=== PATIENT | female | born 1960 | race Caucasian/White ===

== ENCOUNTER 2017-02-17 11:36 | Observation (INO) | payer MEDICARE, BC ==
[2017-02-17] MEDS ORDERED: Aspirin 81 MG Tab.Chew PO ONE (11:49)
--- NOTE | 2017-02-17 12:12 | EDM.PDOC ---
ED HPI GENERAL MEDICAL PROBLEM - General Chief Complaint: Chest Pain Stated Complaint: CHEST PAIN/SOB Time Seen by Provider: 02/17/17 12:10 Source of Information: Reports: Patient, Family History Limitations: Reports: No Limitations - History of Present Illness INITIAL COMMENTS - FREE TEXT/NARRATIVE: pt had left sided chest pain trhat woke here at 5 thirty this am. Onset: Today Duration: Hour(s): Location: Reports: Chest Quality: Reports: Pressure, Stabbing, Other ( started out being stabbing pain and it is now crushing pain) Associated Symptoms: Reports: Chest Pain, Shortness of Breath Treatments FINISH MIXER: Reports: Acetaminophen Other Treatments FINISH MIXER: ASA 325 mg Mid-Sternal Chest Pain Score (Numeric/FACES): 8 - Related Data Allergies Allergy/AdvReac Type Severity Reaction Status Date / Time erythromycin base AdvReac Vomiting Verified 02/17/17 12:02 Home Meds: Home Meds ALPRAZolam [Xanax XR] 3 tab PO DAILY 04/01/15 [History] Calcium Carbonate [Calcium] 1 tab PO BID 04/01/15 [History] Cyclobenzaprine [Flexeril] 3 - 4 tab PO BEDTIME 04/01/15 [History] Levothyroxine [Synthroid] 1 tab PO DAILY 04/01/15 [History] Simvastatin [Zocor] 20 mg PO BEDTIME 07/13/16 [History] Cholecalciferol (Vitamin D3) [Vitamin D3] 1,000 units PO BID 02/17/17 [History] Past Medical History Cardiovascular History: Reports: High Cholesterol DIRECTOR SCRIPT History: Reports: Musculoskeletal History: Reports: Other (See Below) Other Musculoskeletal History: hip pain Other Neuro History: memory loss Psychiatric History: Reports: Anxiety Endocrine/Metabolic History: Reports: Hypothyroidism Hematologic History: Reports: Blood Transfusion(s) - Past Surgical History Musculoskeletal Surgical History: Reports: Hip Replacement, Joint Replacement Social & Family History - Tobacco Use Years of Tobacco use: 35 Packs/Tins Daily: 1 - Alcohol Use Days Per Week of Alcohol Use: 1 Number of Drinks Per Day: 3 Total Drinks Per Week: 3 - Recreational Drug Use Recreational Drug Use: No ED ROS GENERAL - Review of Systems Review Of Systems: See Below Constitutional: Reports: No Symptoms HEENT: Reports: No Symptoms Respiratory: Reports: No Symptoms Cardiovascular: Reports: Chest Pain, Other (substernal chest pain. She has a history of fibromyalcia and does get chest pain at times. ) GI/Abdominal: Reports: No Symptoms : Reports: No Symptoms Musculoskeletal: Reports: Other ( no tenderness to palpate. ) Skin: Reports: No Symptoms ED EXAM, GENERAL - Physical Exam Exam: See Below Free Text/Narrative:: pt arrived with pain in the left chest. This woke her up at 5 thirty this am and she has been very uncomfortable since that time. Exam Limited By: No Limitations General Appearance: Alert, Anxious, Moderate Distress Ears: Normal TMs Nose: Normal Inspection Throat/Mouth: Normal Inspection Head: Atraumatic Neck: Normal Inspection Respiratory/Chest: No Respiratory Distress Cardiovascular: Regular Rate, Rhythm GI/Abdominal: Soft, Non-Tender (Female) Exam: Deferred Rectal (Female) Exam: Deferred Back Exam: Normal Inspection Extremities: Normal Inspection Neurological: Alert, Oriented, Normal Cognition Psychiatric: Normal Affect, Anxious Course - Vital Signs Last Recorded V/S: Last Vital Signs Temp 36.4 C 02/17/17 12:16 Pulse 55 L 02/17/17 14:47 Resp 20 02/17/17 13:30 BP 127/76 02/17/17 14:47 Pulse Ox 92 L 02/17/17 14:47 - Orders/Labs/Meds Orders: Active Orders 24 hr Category Date Time Status Patient Status Manage Transfer [TRANSFER] Routine ADT 02/17/17 15:06 Active EKG Documentation Completion [RC] ASDIRECTED Care 02/17/17 11:47 Active EKG Documentation Completion [RC] ASDIRECTED Care 02/17/17 14:20 Active Resuscitation Status Routine Resus Stat 02/17/17 15:08 Ordered EKG 12 Lead [EK] Routine Ther 02/17/17 11:47 Ordered EKG 12 Lead [EK] Routine Ther 02/17/17 14:19 Ordered Labs: Laboratory Tests 02/17/17 02/17/17 02/17/17 Range/Units 11:52 11:52 11:52 WBC 5.7 (4.5-11.0) K/uL RBC 4.63 (3.30-5.50) M/uL Hgb 14.5 (12.0-15.0) g/dL Hct 42.4 (36.0-48.0) % MCV 92 (80-98) fL MCH 31 (27-31) pg MCHC 34 (32-36) % Plt Count 263 (150-400) K/uL Neut % (Auto) 55 (36-66) % Lymph % (Auto) 35 (24-44) % Russell % (Auto) 9 H (2-6) % Eos % (Auto) 1 L (2-4) % Baso % (Auto) 0 (0-1) % Sodium 141 (140-148) mmol/L Potassium 3.6 (3.6-5.2) mmol/L Chloride 105 (100-108) mmol/L Carbon Dioxide 25 (21-32) mmol/L Anion Gap 11.2 (5.0-14.0) mmol/L BUN 10 (7-18) mg/dL Creatinine 0.9 (0.6-1.0) mg/dL Est Cr Clr Drug Dosing 70.41 mL/min Estimated GFR (MDRD) > 60 (>60) Glucose 123 H (74-106) mg/dL Calcium 8.8 (8.5-10.1) mg/dL Total Bilirubin 0.3 (0.2-1.0) mg/dL AST 36 (15-37) U/L ALT 75 (12-78) U/L Alkaline Phosphatase 57 (46-116) U/L Creatine Kinase 94 (26-192) U/L Troponin I < 0.017 (0.000-0.056) ng/mL Total Protein 8.0 (6.4-8.2) g/dL Albumin 4.0 (3.4-5.0) g/dL Globulin 4.0 H (2.3-3.5) g/dL Albumin/Globulin Ratio 1.0 L (1.2-2.2) TSH, Ultra Sensitive (0.358-3.740) uIU/mL Urine Color Urine Appearance Urine pH (4.5-8.0) Ur Specific [place] (1.008-1.030) Urine Protein (NEGATIVE) mg/dL Urine Glucose (UA) (NEGATIVE) mg/dL Urine Ketones (NEGATIVE) mg/dL Urine Occult Blood (NEGATIVE) Urine Nitrite (NEGATIVE) Urine Bilirubin (NEGATIVE) Urine Urobilinogen (NORMAL) mg/dL Ur Leukocyte Esterase (NEGATIVE) Urine RBC (0-5) Urine WBC (0-5) Ur Epithelial Cells Amorphous Sediment Urine Bacteria Urine Mucus 02/17/17 02/17/17 02/17/17 Range/Units 11:52 11:52 12:45 WBC (4.5-11.0) K/uL RBC (3.30-5.50) M/uL Hgb (12.0-15.0) g/dL Hct (36.0-48.0) % MCV (80-98) fL MCH (27-31) pg MCHC (32-36) % Plt Count (150-400) K/uL Neut % (Auto) (36-66) % Lymph % (Auto) (24-44) % Russell % (Auto) (2-6) % Eos % (Auto) (2-4) % Baso % (Auto) (0-1) % Sodium (140-148) mmol/L Potassium (3.6-5.2) mmol/L Chloride (100-108) mmol/L Carbon Dioxide (21-32) mmol/L Anion Gap (5.0-14.0) mmol/L BUN (7-18) mg/dL Creatinine (0.6-1.0) mg/dL Est Cr Clr Drug Dosing mL/min Estimated GFR (MDRD) (>60) Glucose (74-106) mg/dL Calcium (8.5-10.1) mg/dL Total Bilirubin (0.2-1.0) mg/dL AST (15-37) U/L ALT (12-78) U/L Alkaline Phosphatase (46-116) U/L Creatine Kinase (26-192) U/L Troponin I Cancelled < 0.017 (0.000-0.056) ng/mL Total Protein (6.4-8.2) g/dL Albumin (3.4-5.0) g/dL Globulin (2.3-3.5) g/dL Albumin/Globulin Ratio (1.2-2.2) TSH, Ultra Sensitive 0.898 (0.358-3.740) uIU/mL Urine Color Urine Appearance Urine pH (4.5-8.0) Ur Specific [place] (1.008-1.030) Urine Protein (NEGATIVE) mg/dL Urine Glucose (UA) (NEGATIVE) mg/dL Urine Ketones (NEGATIVE) mg/dL Urine Occult Blood (NEGATIVE) Urine Nitrite (NEGATIVE) Urine Bilirubin (NEGATIVE) Urine Urobilinogen (NORMAL) mg/dL Ur Leukocyte Esterase (NEGATIVE) Urine RBC (0-5) Urine WBC (0-5) Ur Epithelial Cells Amorphous Sediment Urine Bacteria Urine Mucus 02/17/17 Range/Units 13:22 WBC (4.5-11.0) K/uL RBC (3.30-5.50) M/uL Hgb (12.0-15.0) g/dL Hct (36.0-48.0) % MCV (80-98) fL MCH (27-31) pg MCHC (32-36) % Plt Count (150-400) K/uL Neut % (Auto) (36-66) % Lymph % (Auto) (24-44) % Russell % (Auto) (2-6) % Eos % (Auto) (2-4) % Baso % (Auto) (0-1) % Sodium (140-148) mmol/L Potassium (3.6-5.2) mmol/L Chloride (100-108) mmol/L Carbon Dioxide (21-32) mmol/L Anion Gap (5.0-14.0) mmol/L BUN (7-18) mg/dL Creatinine (0.6-1.0) mg/dL Est Cr Clr Drug Dosing mL/min Estimated GFR (MDRD) (>60) Glucose (74-106) mg/dL Calcium (8.5-10.1) mg/dL Total Bilirubin (0.2-1.0) mg/dL AST (15-37) U/L ALT (12-78) U/L Alkaline Phosphatase (46-116) U/L Creatine Kinase (26-192) U/L Troponin I (0.000-0.056) ng/mL Total Protein (6.4-8.2) g/dL Albumin (3.4-5.0) g/dL Globulin (2.3-3.5) g/dL Albumin/Globulin Ratio (1.2-2.2) TSH, Ultra Sensitive (0.358-3.740) uIU/mL Urine Color Yellow Urine Appearance Slightly cloudy Urine pH 8.0 (4.5-8.0) Ur Specific [place] 1.010 (1.008-1.030) Urine Protein Negative (NEGATIVE) mg/dL Urine Glucose (UA) Normal (NEGATIVE) mg/dL Urine Ketones Negative (NEGATIVE) mg/dL Urine Occult Blood Negative (NEGATIVE) Urine Nitrite Negative (NEGATIVE) Urine Bilirubin Negative (NEGATIVE) Urine Urobilinogen Normal (NORMAL) mg/dL Ur Leukocyte Esterase Negative (NEGATIVE) Urine RBC 0-5 (0-5) Urine WBC 0-5 (0-5) Ur Epithelial Cells Rare Amorphous Sediment Not seen Urine Bacteria Few Urine Mucus Not seen Meds: Medications Discontinued Medications Generic Name Dose Route Start Last Admin Trade Name Freq PRN Reason Stop Dose Admin Acetaminophen 650 mg 02/17/17 12:31 02/17/17 12:38 Tylenol PO 02/17/17 12:32 650 mg NOW ONE Administration Aspirin 324 mg 02/17/17 11:49 02/17/17 13:09 Aspirin PO 02/17/17 11:50 Not Given ONETIME ONE Hydromorphone HCl 0.5 mg 02/17/17 14:22 02/17/17 14:40 Dilaudid IVPUSH 02/17/17 14:23 0.5 mg ONETIME ONE Administration Ketorolac Tromethamine 30 mg 02/17/17 12:54 02/17/17 13:06 Toradol IVPUSH 02/17/17 12:55 30 mg ONETIME ONE Administration Lorazepam 0.5 mg 02/17/17 13:40 02/17/17 13:45 Ativan IVPUSH 02/17/17 13:41 0.5 mg ONETIME ONE Administration Nitroglycerin 0.4 mg 02/17/17 11:58 02/17/17 12:48 Nitrostat SL 0.4 mg Q5M PRN Administration Chest Pain - Re-Assessments/Exams Free Text/Narrative Re-Assessment/Exam: 02/17/17 14:28 ekg gave some minor s-t changes ant lateral, cardiac enzymes are normal. Pt has had persistent chest pain. The nitro may have lowered her pain to a 6 from a 8. The torodol brought it down further. She still has persistent pain. sHe will hav e a repeat trop. Her ekg still shows some cellophane wrapping examiner s-t changes. Departure - Departure Time of Disposition: 14:34 Disposition: Admitted As Inpatient 66 Condition: Fair Clinical Impression: Atypical chest pain, Chest pain at rest, Fibromyalgia Referrals: Christiano Walker PA-C [Primary Care Provider] - Forms: ED Department Discharge Care Plan Goals: admit to Dr england. - My Orders Last 24 Hours: My Active Orders 02/17/17 11:47 EKG Documentation Completion [RC] ASDIRECTED EKG 12 Lead [EK] Routine 02/17/17 14:19 EKG 12 Lead [EK] Routine 02/17/17 14:20 EKG Documentation Completion [RC] ASDIRECTED - Assessment/Plan Last 24 Hours: My Active Orders 02/17/17 11:47 EKG Documentation Completion [RC] ASDIRECTED EKG 12 Lead [EK] Routine 02/17/17 14:19 EKG 12 Lead [EK] Routine 02/17/17 14:20 EKG Documentation Completion [RC] ASDIRECTED
[2017-02-17] MEDS: Nitroglycerin 0.4 MG Tab.SL SL PRN ×3 (12:25→12:48)
[2017-02-17] MEDS ORDERED: Acetaminophen 325 MG Tab PO ONE (12:31)
--- NOTE | 2017-02-17 12:45 | CR ---
Chest 1V Frontal INDICATION: chest pain FINDINGS: Normal heart size. Benign calcified granuloma left midlung. Mild aortic calcification. Ches t otherwise negative.
[2017-02-17] MEDS ORDERED: Ketorolac 30 MG/ML SDV IVPUSH ONE (12:54)
[2017-02-17] MEDS ORDERED: LORazepam 2 MG/ML MDV IVPUSH ONE (13:40)
[2017-02-17] MEDS ORDERED: HYDROmorphone 0.5 MG/0.5 ML Syringe IVPUSH ONE (14:22)
[2017-02-17] MEDS ORDERED: Magnesium Hydroxide 400 MG/5 ML Susp 30 ML Cup PO PRN (16:05)
[2017-02-17] MEDS ORDERED: Sodium Chloride 0.9% 10 ML Syringe FLUSH PRN (16:05)
[2017-02-17] MEDS ORDERED: Albuterol 0.083% 2.5 MG/3 ML Neb Soln NEB PRN (16:05)
[2017-02-17] MEDS ORDERED: oxyCODONE 5 MG Tab PO PRN (16:05)
[2017-02-17] MEDS ORDERED: Zolpidem 5 MG Tab PO PRN (16:05)
[2017-02-17] MEDS ORDERED: Polyethylene Glycol 3350 Powder 17 GM Packet PO PRN (16:05)
[2017-02-17] MEDS ORDERED: HYDROmorphone 0.5 MG/0.5 ML Syringe IVPUSH PRN (16:05)
[2017-02-17] MEDS ORDERED: Ondansetron 4 MG/2 ML SDV IV PRN (16:05)
[2017-02-17] MEDS ORDERED: Docusate Sodium 100 MG Cap PO PRN (16:05)
[2017-02-17] MEDS ORDERED: ALPRAZolam 0.5 MG Tab PO PRN (16:55)
[2017-02-17] MEDS: Enoxaparin 40 MG/0.4 ML Syringe SUBCUT SCH (17:04)
[2017-02-17] MEDS: Pantoprazole 40 MG Vial IV SCH ×2 (17:06→17:08)
--- NOTE | 2017-02-17 17:28 | PCM.HP ---
H&P History of Present Illness - General Date of Service: 02/17/17 Admit Problem/Dx: Admission Diagnosis/Problem Admission Diagnosis/Problem Chest pain Source of Information: Patient, Family, Provider, RN Notes Reviewed History Limitations: Reports: No Limitations - History of Present Illness Initial Comments - Free Text/Narative: Ms. Jc is a 56-year-old woman who is admitted to observation status through the emergency room for further evaluation of chest pain. She awoke early this morning with a sharp pain in her central left chest. Pain was described as very sharp and intense, radiating to the left shoulder and arm. Associated with nausea and shortness of breath, but no diaphoresis. She noted no precipitating or relieving factors. She came into the emergency department for further evaluation, initial EKG and cardiac enzymes were negative for any evidence of ischemia or infarct. Pain improved only modestly with nitroglycerin, has now resolved after she received IV Dilaudid. Follow-up troponin level is again found to be within normal range. Risk factors for coronary artery disease include a history of hypertension as well as a [id number] smoking history, she quit smoking approximately 5 years ago. She denies a personal history of diabetes or hypertension, there is no significant family history of coronary artery disease. Mid-Sternal Chest Pain Score (Numeric/FACES): 8 - Related Data Allergies/Adverse Reactions: Allergies Allergy/AdvReac Type Severity Reaction Status Date / Time erythromycin base AdvReac Vomiting Verified 02/17/17 12:02 Home Medications: Home Meds Calcium Carbonate [Calcium] 1 tab PO BID 04/01/15 [History] Cyclobenzaprine [Flexeril] 40 tab PO BEDTIME 04/01/15 [History] Levothyroxine [Synthroid] 1 tab PO DAILY 04/01/15 [History] Simvastatin [Zocor] 20 mg PO BEDTIME 07/13/16 [History] ALPRAZolam [Alprazolam] 1 mg PO BID PRN 02/17/17 [History] ALPRAZolam [Alprazolam] 4 mg PO BEDTIME 02/17/17 [History] Cholecalciferol (Vitamin D3) [Vitamin D3] 1,000 units PO BID 02/17/17 [History] Cyclobenzaprine [Flexeril] 10 mg PO BID 02/17/17 [History] Past Medical History HEENT History: Reports: Impaired Vision Cardiovascular History: Reports: High Cholesterol 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 SPECIALIST History: 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: Musculoskeletal History: Reports: Fibromyalgia, Other (See Below) Other Musculoskeletal History: hip pain Other Neuro History: memory loss Psychiatric History: Reports: Anxiety Endocrine/Metabolic History: Reports: Hypothyroidism Hematologic History: Reports: Blood Transfusion(s) - Past Surgical History HEENT Surgical History: Reports: Adenoidectomy, Tonsillectomy GI Surgical History: Reports: Colon, Colonoscopy, Other (See Below) Other GI Surgeries/Procedures: colon surg "tummy tuck" Female Surgical History: Reports: Hysterectomy Musculoskeletal Surgical History: Reports: Hip Replacement, Joint Replacement Social & Family History - Tobacco Use Smoking Status *Q: Never Smoker Years of Tobacco use: 35 Packs/Tins Daily: 1 Second Hand Smoke Exposure: No - Caffeine Use Caffeine Use: Reports: None - Alcohol Use Days Per Week of Alcohol Use: 1 Number of Drinks Per Day: 3 Total Drinks Per Week: 3 - Recreational Drug Use Recreational Drug Use: No H&P Review of Systems - Review of Systems: Review Of Systems: See Below General: Reports: No Symptoms HEENT: Reports: No Symptoms Pulmonary: Reports: Shortness of Breath. Denies: Wheezing, Pleuritic Chest Pain , Cough, Sputum Cardiovascular: Reports: Chest Pain, Dyspnea on Exertion. Denies: Palpitations , Orthopnea, PND, Edema, Lightheadedness, Syncope Gastrointestinal: Reports: No Symptoms Genitourinary: Reports: No Symptoms Musculoskeletal: Reports: No Symptoms Skin: Reports: No Symptoms Psychiatric: Reports: No Symptoms Neurological: Reports: No Symptoms Hematologic/Lymphatic: Reports: No Symptoms Immunologic: Reports: No Symptoms Exam - Exam Exam: See Below - Vital Signs Vital Signs: Last Vital Signs Temp 98.3 F 02/17/17 16:05 Pulse 59 L 02/17/17 16:05 Resp 12 02/17/17 16:05 BP 149/87 H 02/17/17 16:05 Pulse Ox 94 L 02/17/17 16:05 Weight: 176 lb - Exam Quality Assessment: DVT Prophylaxis General: Alert, Oriented, Cooperative HEENT: Conjunctiva Clear, Hearing Intact, Mucosa Moist & [place], Normal Nasal Septum, Posterior Pharynx Clear, Pupils Equal Neck: Supple, Trachea Midline, +2 Carotid Pulse wo Bruit Lungs: Clear to Auscultation, Normal Respiratory Effort Cardiovascular: Regular Rate, Regular Rhythm, Normal S1, Normal S2. No: Systolic Murmur, Diastolic Murmur GI/Abdominal Exam: Normal Bowel Sounds, Soft, Non-Tender, No Organomegaly, No Distention Rectal (Female) Exam: Normal Rectal Tone Back Exam: Normal Inspection, Full Range of Motion Extremities: Normal Inspection, Non-Tender, No Pedal Edema Skin: Warm, Dry, Intact Neurological: Cranial Nerves Intact, Strength Equal Bilateral, Normal Speech, Normal Tone, Sensation Intact. No: Focal Deficit Neuro Extensive - Mental Status: Alert, Oriented x3, Normal Mood/Affect, Normal Cognition, Memory Intact - Patient Data Result Diagrams: 02/17/17 11:52 02/17/17 11:52 *Q Meaningful Use (ADM) - VTE *Q VTE Criteria *Q: - VTE Risk Assess *Q Each Risk Factor Represents 1 Point: Age 41 - 59 years Total Score 1 Point Risk Factors: 1 Each Risk Factor Represents 2 Points: None Total Score 2 Point Risk Factors: 0 Each Risk Factor Represents 3 Points: None Total Score 3 Point Risk Factors: 0 Each Risk Factor Represents 5 Points: None Total Score 5 Point Risk Factors: 0 Venous Thromboembolism Risk Factor Score *Q: 1 - Stroke *Q Stroke Criteria *Q: - AMI *Q AMI Criteria *Q: Problem List Initiated/Reviewed/Updated: Yes Orders Last 24hrs: Active Orders 24 hr Category Date Time Status Patient Status [ADT] Routine ADT 02/17/17 16:05 Active Cardiac Monitoring [RC] .As Directed Care 02/17/17 16:05 Active Intake and Output [RC] QSHIFT Care 02/17/17 16:05 Active Notify Provider Vital Signs [RC] ASDIRECTED Care 02/17/17 16:05 Active RT Aerosol Therapy [RC] ASDIRECTED Care 02/17/17 16:05 Active Up ad Isela [RC] ASDIRECTED Care 02/17/17 16:05 Active VTE/DVT Education [RC] Per Unit Routine Care 02/17/17 16:05 Active Vital Signs [RC] Q4H Care 02/17/17 16:05 Active Regular Diet [DIET] Diet 02/17/17 Lunch Active Myocardial Perf Spect Multi [NM] Urgent Exams 02/18/17 08:00 Ordered LIPID PANEL [CHEM] AM Lab 02/18/17 05:11 Ordered TROPONIN I [CHEM] Stat Lab 02/17/17 21:00 Ordered ALPRAZolam [Xanax] Med 02/17/17 16:55 Active 1 mg PO BID PRN ALPRAZolam [Xanax] Med 02/17/17 21:00 Active 4 mg PO BEDTIME Acetaminophen [Tylenol] Med 02/17/17 16:05 Active 650 mg PO Q4H PRN Albuterol [Proventil Neb Soln] Med 02/17/17 16:05 Active 2.5 mg NEB Q4H PRN Cyclobenzaprine [Flexeril] Med 02/17/17 21:00 Active 40 mg PO BEDTIME Docusate Sodium [Colace] Med 02/17/17 16:05 Active 100 mg PO BID PRN Enoxaparin [Lovenox] Med 02/17/17 17:00 Active 40 mg SUBCUT Q24H HYDROmorphone [Dilaudid] Med 02/17/17 16:05 Active 0.5 mg IVPUSH Q2H PRN Ketorolac [Toradol] Med 02/17/17 16:05 Active 30 mg IVPUSH Q6H PRN Magnesium Hydroxide [Milk of Magnesia] Med 02/17/17 16:05 Active 30 ml PO Q12H PRN Ondansetron [Zofran] Med 02/17/17 16:05 Active 4 mg IV Q4H PRN Pantoprazole [ProTONIX IV] Med 02/17/17 17:00 Active 40 mg IV Q12H Polyethylene Glycol 3350 [MiraLAX] Med 02/17/17 16:05 Active 17 gm PO DAILY PRN Sodium Chloride 0.9% [Saline Flush] Med 02/17/17 16:05 Active 10 ml FLUSH ASDIRECTED PRN Zolpidem [Ambien] Med 02/17/17 16:05 Active 5 mg PO BEDTIME PRN oxyCODONE Med 02/17/17 16:05 Active 10 mg PO Q4H PRN Saline Lock Insert [OM.PC] Routine Oth 02/17/17 16:05 Ordered Resuscitation Status Routine Resus Stat 02/17/17 15:08 Ordered Medication Orders Acetaminophen (Tylenol) 650 mg PO Q4H PRN PRN Reason: Pain (Mild 1-3)/fever Albuterol (Proventil Neb Soln) 2.5 mg NEB Q4H PRN PRN Reason: Shortness Of Breath/wheezing Alprazolam (Xanax) 4 mg PO BEDTIME [facility] Alprazolam (Xanax) 1 mg PO BID PRN PRN Reason: ANXIETY/PAIN Cyclobenzaprine HCl (Flexeril) 40 mg PO BEDTIME [facility] Docusate Sodium (Colace) 100 mg PO BID PRN PRN Reason: Constipation Enoxaparin Sodium (Lovenox) 40 mg SUBCUT Q24H [facility] Last Admin: 02/17/17 17:04 Dose: 40 mg Hydromorphone HCl (Dilaudid) 0.5 mg IVPUSH Q2H PRN PRN Reason: Pain Ketorolac Tromethamine (Toradol) 30 mg IVPUSH Q6H PRN PRN Reason: Pain Stop: 02/22/17 15:52 Levothyroxine Sodium (Synthroid) 100 mcg PO DAILY@0730 [facility] Magnesium Hydroxide (Milk Of Magnesia) 30 ml PO Q12H PRN PRN Reason: Constipation Ondansetron HCl (Zofran) 4 mg IV Q4H PRN PRN Reason: Nausea/Vomiting Oxycodone HCl (Oxycodone) 10 mg PO Q4H PRN PRN Reason: Pain (moderate 4-6) Pantoprazole Sodium (Protonix Iv) 40 mg IV Q12H [facility] Last Admin: 02/17/17 17:08 Dose: 40 mg Polyethylene Glycol (Miralax) 17 gm PO DAILY PRN PRN Reason: Constipation Simvastatin (Zocor) 20 mg PO BEDTIME [facility] Sodium Chloride (Saline Flush) 10 ml FLUSH ASDIRECTED PRN PRN Reason: Keep Vein Open Zolpidem Tartrate (Ambien) 5 mg PO BEDTIME PRN PRN Reason: Insomnia Assessment/Plan Comment:: ASSESSMENT AND PLAN CHEST PAIN-abrupt onset early this morning, intense pain in the left central chest, radiating to the left shoulder and arm. Initial EKG and troponin showed no evidence of infarct or ischemia, follow-up troponin normal. Risk factors include previous smoking history of 40 years, abstinent from tobacco now for 5 years, as well as a history of hypercholesterolemia. Pain did not improve with nitroglycerin but did improve with IV narcotics. -Serial troponin levels -IV Dilaudid as needed for pain -Nitroglycerin as needed -Exercise Cardiolite study in a.m. -Protonix 40 mg IV every 12 hours MAINTENANCE ISSUES -DVT prophylaxis; Lovenox 40 mg subcutaneous daily -GI prophylaxis; Protonix as above -Awan catheter; not indicated -Nutrition; regular diet -Nicotinic dependence; not required CODE STATUS-FULL CODE ADMISSION STATUS-this patient will be admitted to observation status, expect no more than a one night hospital stay for evaluation and management of problems as outlined above. DISPOSITION-anticipate discharge to home after the hospital stay. PRIMARY CARE PROVIDER-patient receives primary care in [facility]
[2017-02-17] MEDS ORDERED: Cyclobenzaprine 10 MG Tab PO PRN (21:00)
[2017-02-17] MEDS ORDERED: Simvastatin 20 MG Tab PO SCH (21:00)
[2017-02-17] MEDS ORDERED: ALPRAZolam 0.5 MG Tab PO SCH (21:00)
[2017-02-17] MEDS ORDERED: Cyclobenzaprine 10 MG Tab PO SCH (21:00)
[2017-02-17] MEDS: Ketorolac 30 MG/ML SDV IVPUSH PRN (21:03)
[2017-02-17] MEDS: Acetaminophen 325 MG Tab PO PRN (21:04)
[2017-02-18] MEDS: Pantoprazole 40 MG Vial IV SCH ×2 (04:58→17:50)
[2017-02-18] MEDS ORDERED: Levothyroxine 100 MCG Tab PO SCH (07:30)
[2017-02-18] MEDS ORDERED: ALPRAZOLAM PO SCH (09:00)
--- NOTE | 2017-02-18 09:38 | PCM.PN ---
- General Info Date of Service: 02/18/17 Functional Status: Reports: Pain Controlled, Tolerating Diet, Ambulating - Review of Systems General: Denies: Fever, Weakness, Chills Pulmonary: Reports: No Symptoms Cardiovascular: Reports: No Symptoms Gastrointestinal: Reports: No Symptoms Systems Review Comment:: This patient has been stable since admission, serial troponin levels were all negative for any evidence of myocardial infarction. Vital signs have been stable and she has remained afebrile. Chest pain has essentially resolved with no recurrence since admission. - Patient Data Vitals - Most Recent: Last Vital Signs Temp 98.2 F 02/17/17 20:05 Pulse 48 L 02/18/17 05:07 Resp 11 L 02/18/17 05:07 BP 110/59 L 02/18/17 05:07 Pulse Ox 96 02/18/17 05:07 Weight - Most Recent: 176 lb I&O - Last 24 Hours: Intake & Output 02/17/17 02/18/17 02/18/17 22:59 06:59 14:59 Intake Total 500 Balance 500 Lab Results Last 24 Hours: Laboratory Results - last 24 hr 02/17/17 02/18/17 Range/Units 21:00 05:49 Troponin I < 0.017 (0.000-0.056) ng/mL Triglycerides 152 H (15-150) mg/dL Cholesterol 191 (0-200) mg/dL LDL Cholesterol Direct 109 H (0-100) mg/dL HDL Cholesterol 73 H (40-60) mg/dL Med Orders - Current: Current Medications Acetaminophen (Tylenol) 650 mg PO Q4H PRN PRN Reason: Pain (Mild 1-3)/fever Last Admin: 02/17/17 21:04 Dose: 650 mg Albuterol (Proventil Neb Soln) 2.5 mg NEB Q4H PRN PRN Reason: Shortness Of Breath/wheezing Alprazolam (Xanax) 4 mg PO BEDTIME [facility] Last Admin: 02/17/17 20:51 Dose: Not Given Alprazolam (Xanax) 1 mg PO BID PRN PRN Reason: ANXIETY/PAIN Cyclobenzaprine HCl (Flexeril) 40 mg PO BEDTIME [facility] Last Admin: 02/17/17 20:51 Dose: Not Given Docusate Sodium (Colace) 100 mg PO BID PRN PRN Reason: Constipation Enoxaparin Sodium (Lovenox) 40 mg SUBCUT Q24H [facility] Last Admin: 02/17/17 17:04 Dose: 40 mg Hydromorphone HCl (Dilaudid) 0.5 mg IVPUSH Q2H PRN PRN Reason: Pain Ketorolac Tromethamine (Toradol) 30 mg IVPUSH Q6H PRN PRN Reason: Pain Stop: 02/22/17 15:52 Last Admin: 02/17/17 21:03 Dose: 30 mg Levothyroxine Sodium (Synthroid) 100 mcg PO DAILY@0730 [facility] Last Admin: 02/18/17 08:41 Dose: Not Given Magnesium Hydroxide (Milk Of Magnesia) 30 ml PO Q12H PRN PRN Reason: Constipation Ondansetron HCl (Zofran) 4 mg IV Q4H PRN PRN Reason: Nausea/Vomiting Oxycodone HCl (Oxycodone) 10 mg PO Q4H PRN PRN Reason: Pain (moderate 4-6) Pantoprazole Sodium (Protonix Iv) 40 mg IV Q12H [facility] Last Admin: 02/18/17 04:58 Dose: 40 mg Polyethylene Glycol (Miralax) 17 gm PO DAILY PRN PRN Reason: Constipation Simvastatin (Zocor) 20 mg PO BEDTIME [facility] Last Admin: 02/17/17 20:52 Dose: Not Given Sodium Chloride (Saline Flush) 10 ml FLUSH ASDIRECTED PRN PRN Reason: Keep Vein Open Zolpidem Tartrate (Ambien) 5 mg PO BEDTIME PRN PRN Reason: Insomnia Last Admin: 02/17/17 21:02 Dose: 5 mg Discontinued Medications Acetaminophen (Tylenol) 650 mg PO NOW ONE Stop: 02/17/17 12:32 Last Admin: 02/17/17 12:38 Dose: 650 mg Aspirin (Aspirin) 324 mg PO ONETIME ONE Stop: 02/17/17 11:50 Last Admin: 02/17/17 13:09 Dose: Not Given Hydromorphone HCl (Dilaudid) 0.5 mg IVPUSH ONETIME ONE Stop: 02/17/17 14:23 Last Admin: 02/17/17 14:40 Dose: 0.5 mg Ketorolac Tromethamine (Toradol) 30 mg IVPUSH ONETIME ONE Stop: 02/17/17 12:55 Last Admin: 02/17/17 13:06 Dose: 30 mg Lorazepam (Ativan) 0.5 mg IVPUSH ONETIME ONE Stop: 02/17/17 13:41 Last Admin: 02/17/17 13:45 Dose: 0.5 mg Nitroglycerin (Nitrostat) 0.4 mg SL Q5M PRN PRN Reason: Chest Pain Last Admin: 02/17/17 12:48 Dose: 0.4 mg - Exam Quality Assessment: DVT Prophylaxis General: Alert, Oriented, Cooperative, No Acute Distress Lungs: Clear to Auscultation, Normal Respiratory Effort Cardiovascular: Regular Rate, Regular Rhythm, No Murmurs GI/Abdominal Exam: Normal Bowel Sounds, Soft, No Distention Extremities: Normal Inspection, Non-Tender, No Pedal Edema Skin: Warm, Dry, Intact - Problem List Review Problem List Initiated/Reviewed/Updated: Yes - My Orders Last 24 Hours: My Active Orders 02/17/17 15:08 Resuscitation Status Routine 02/17/17 16:05 Patient Status [ADT] Routine Cardiac Monitoring [RC] Q6H Intake and Output [RC] QSHIFT Notify Provider Vital Signs [RC] ASDIRECTED RT Aerosol Therapy [RC] ASDIRECTED Up ad Isela [RC] ASDIRECTED VTE/DVT Education [RC] Per Unit Routine Vital Signs [RC] Q4H Acetaminophen [Tylenol] 650 mg PO Q4H PRN Albuterol [Proventil Neb Soln] 2.5 mg NEB Q4H PRN Docusate Sodium [Colace] 100 mg PO BID PRN HYDROmorphone [Dilaudid] 0.5 mg IVPUSH Q2H PRN Ketorolac [Toradol] 30 mg IVPUSH Q6H PRN Magnesium Hydroxide [Milk of Magnesia] 30 ml PO Q12H PRN Ondansetron [Zofran] 4 mg IV Q4H PRN Polyethylene Glycol 3350 [MiraLAX] 17 gm PO DAILY PRN Sodium Chloride 0.9% [Saline Flush] 10 ml FLUSH ASDIRECTED PRN Zolpidem [Ambien] 5 mg PO BEDTIME PRN oxyCODONE 10 mg PO Q4H PRN Saline Lock Insert [OM.PC] Routine 02/17/17 16:55 ALPRAZolam [Xanax] 1 mg PO BID PRN 02/17/17 17:00 Enoxaparin [Lovenox] 40 mg SUBCUT Q24H Pantoprazole [ProTONIX IV] 40 mg IV Q12H 02/17/17 21:00 ALPRAZolam [Xanax] 4 mg PO BEDTIME Cyclobenzaprine [Flexeril] 40 mg PO BEDTIME 02/17/17 Lunch Regular Diet [DIET] 02/18/17 08:00 Myocardial Perf Spect Multi [NM] Urgent - Plan Plan:: ASSESSMENT AND PLAN CHEST PAIN-pain resolved, serial troponin levels within normal range -IV Dilaudid as needed for pain -Nitroglycerin as needed -Exercise Cardiolite study today -Protonix 40 mg IV every 12 hours MAINTENANCE ISSUES -DVT prophylaxis; Lovenox 40 mg subcutaneous daily -GI prophylaxis; Protonix as above -Awan catheter; not indicated -Nutrition; regular diet -Nicotinic dependence; not required CODE STATUS-FULL CODE ADMISSION STATUS-this patient will be admitted to observation status, expect no more than a one night hospital stay for evaluation and management of problems as outlined above. DISPOSITION-anticipate discharge to home after the hospital stay. PRIMARY CARE PROVIDER-patient receives primary care in [facility]
[2017-02-18] MEDS ORDERED: Aminophylline 250 MG/10 ML SDV IV PRN (10:35)
[2017-02-18] MEDS: Acetaminophen 325 MG Tab PO PRN (11:06)
[2017-02-18 12:50] VITALS: BP 140/68
[2017-02-18] MEDS: Ketorolac 30 MG/ML SDV IVPUSH PRN (13:03)
--- NOTE | 2017-02-18 13:10 | NM ---
Myocardial Perf Spect Multi INDICATION: Chest pain COMPARISON: None. TECHNIQUE: Treadmill Nuclear medicine Cardiolite scan was performed utilizing 32.0 millicuries uptak e technetium 99m sestamibi at stress and 10.8 millicuries of technetium 99m at rest. FINDINGS: The left ventricular myocardium demonstrates homogeneous radiotracer uptake. Wall motion st udies are within normal limits. Calculated left ventricular ejection fraction measures 57% at stress and 57% at rest. IMPRESSION: 1. Normal Cardiolite study.
[2017-02-18] MEDS ORDERED: Sodium Chloride 0.9% 10 ML Syringe FLUSH PRN (15:53)
[2017-02-18] MEDS ORDERED: Sodium Chloride 0.9% 100 ML IV ONE (15:53)
[2017-02-18] MEDS ORDERED: Sodium Chloride 0.9% 10 ML Syringe FLUSH ONE (15:59)
[2017-02-18] MEDS ORDERED: Iopamidol 755 Mg/ML 100 ML Bottle IV SCH ×2 (16:00)
[2017-02-18] MEDS: Enoxaparin 40 MG/0.4 ML Syringe SUBCUT SCH (17:50)
--- NOTE | 2017-02-18 18:25 | PCM.DCSUM1 ---
Discharge Summary - Hospital Course Brief History: This patient is a 56-year-old woman who was admitted to observation status through the emergency department for further evaluation and management of chest pain. - Discharge Data Discharge Date: 02/18/17 Discharge Disposition: Home, Self-Care 01 Condition: Stable - Discharge Diagnosis/Problem(s) (1) Chest pain SNOMED Code(s): 88508680 ICD Code: R07.9 - CHEST PAIN, UNSPECIFIED Status: Acute Current Visit: Yes (2) Fibromyalgia SNOMED Code(s): 333728586 ICD Code: M79.7 - FIBROMYALGIA Status: Chronic Current Visit: No - Patient Summary/Data Hospital Course: Ms. Jc is a 56-year-old woman who awoke early on the morning of admission with severe stabbing pain in her left central chest. She has no history of coronary artery disease, but has had previous episodes of chest pain related to fibromyalgia. This pain was more intense and different than what she experienced in the past. Pain persisted and she presented to the emergency department for further evaluation. Initial EKG and troponin level showed no evidence of myocardial ischemia or infarct. Pain improved only modestly with use of nitroglycerin, improved significantly after she was given IV Dilaudid. She was noted to have risk factors for coronary artery disease including a 40- pack-year smoking history, but stopped smoking approximately 5 years ago. She also has a known history of hyper cholesterolemia. She was admitted to the intensive care unit to rule out myocardial infarction, serial troponin levels were within normal range. [place] scan Cardiolite study was obtained and showed no evidence of previous infarct or current ischemia. CT scan of the chest was obtained with PE protocol and showed no evidence of pulmonary embolism or other significant abnormalities within the chest to explain her symptoms of pain. She will be discharged home on Protonix [address] scan did show evidence of cysts on the left ovary, radiology is recommended follow-up pelvic ultrasound for further evaluation. Activity will be as tolerated and she will resume her usual diet. Follow-up appointment will be scheduled with her primary care provider Christiano Walker within 1 week. - Patient Instructions Diet: Usual Diet as Tolerated Activity: As Tolerated Other/Special Instructions: Please schedule follow-up appointment with primary care provider Christiano Walker within 1 week. Patient will require outpatient pelvic ultrasound to further evaluate cysts noted on the left ovary. - Discharge Plan Prescriptions/Med Rec: Pantoprazole Sodium [Protonix] 40 mg PO DAILY #30 tablet. Home Medications: Home Meds Calcium Carbonate [Calcium] 1 tab PO BID 04/01/15 [History] Cyclobenzaprine [Flexeril] 40 tab PO BEDTIME 04/01/15 [History] Levothyroxine [Synthroid] 1 tab PO DAILY 04/01/15 [History] Simvastatin [Zocor] 20 mg PO BEDTIME 07/13/16 [History] ALPRAZolam [Alprazolam] 1 mg PO BID PRN 02/17/17 [History] ALPRAZolam [Alprazolam] 4 mg PO BEDTIME 02/17/17 [History] Cholecalciferol (Vitamin D3) [Vitamin D3] 1,000 units PO BID 02/17/17 [History] Cyclobenzaprine [Flexeril] 10 mg PO BID 02/17/17 [History] Pantoprazole Sodium [Protonix] 40 mg PO DAILY #30 tablet. 02/18/17 [Rx] Referrals: Christiano Walker, REHAN [Primary Care Provider] - - Patient Data Vitals - Most Recent: Last Vital Signs Temp 98.2 F 02/17/17 20:05 Pulse 66 02/18/17 12:50 Resp 15 02/18/17 12:50 BP 140/68 02/18/17 12:50 Pulse Ox 93 L 02/18/17 12:50 Weight - Most Recent: 176 lb Lab Results - Last 24 hrs: Laboratory Results - last 24 hr 02/17/17 02/18/17 Range/Units 21:00 05:49 Troponin I < 0.017 (0.000-0.056) ng/mL Triglycerides 152 H (15-150) mg/dL Cholesterol 191 (0-200) mg/dL LDL Cholesterol Direct 109 H (0-100) mg/dL HDL Cholesterol 73 H (40-60) mg/dL Med Orders - Current: Current Medications Acetaminophen (Tylenol) 650 mg PO Q4H PRN PRN Reason: Pain (Mild 1-3)/fever Last Admin: 02/18/17 11:06 Dose: 650 mg Albuterol (Proventil Neb Soln) 2.5 mg NEB Q4H PRN PRN Reason: Shortness Of Breath/wheezing Alprazolam (Xanax) 4 mg PO BEDTIME [facility] Last Admin: 02/17/17 20:51 Dose: Not Given Alprazolam (Xanax) 1 mg PO BID PRN PRN Reason: ANXIETY/PAIN Cyclobenzaprine HCl (Flexeril) 40 mg PO BEDTIME [facility] Last Admin: 02/17/17 20:51 Dose: Not Given Docusate Sodium (Colace) 100 mg PO BID PRN PRN Reason: Constipation Enoxaparin Sodium (Lovenox) 40 mg SUBCUT Q24H [facility] Last Admin: 02/18/17 17:50 Dose: Not Given Hydromorphone HCl (Dilaudid) 0.5 mg IVPUSH Q2H PRN PRN Reason: Pain Last Admin: 02/18/17 15:38 Dose: 0.5 mg Sodium Chloride (Normal Saline) 94 mls @ 3 mls/sec IV ASDIRECTED [facility] Iopamidol (Isovue-370 (76%)) 100 ml IV . DIRECTED [facility] Last Admin: 02/18/17 16:11 Dose: 100 ml Iopamidol (Isovue-370 (76%)) 100 ml IV . DIRECTED [facility] Ketorolac Tromethamine (Toradol) 30 mg IVPUSH Q6H PRN PRN Reason: Pain Stop: 02/22/17 15:52 Last Admin: 02/18/17 13:03 Dose: 30 mg Levothyroxine Sodium (Synthroid) 100 mcg PO DAILY@0730 [facility] Last Admin: 02/18/17 08:41 Dose: Not Given Magnesium Hydroxide (Milk Of Magnesia) 30 ml PO Q12H PRN PRN Reason: Constipation Ondansetron HCl (Zofran) 4 mg IV Q4H PRN PRN Reason: Nausea/Vomiting Oxycodone HCl (Oxycodone) 10 mg PO Q4H PRN PRN Reason: Pain (moderate 4-6) Pantoprazole Sodium (Protonix Iv) 40 mg IV Q12H [facility] Last Admin: 02/18/17 17:50 Dose: Not Given Polyethylene Glycol (Miralax) 17 gm PO DAILY PRN PRN Reason: Constipation Simvastatin (Zocor) 20 mg PO BEDTIME [facility] Last Admin: 02/17/17 20:52 Dose: Not Given Sodium Chloride (Saline Flush) 10 ml FLUSH ASDIRECTED PRN PRN Reason: Keep Vein Open Sodium Chloride (Saline Flush) 10 ml FLUSH ONETIME PRN PRN Reason: PER RADIOLOGY PROTOCOL Zolpidem Tartrate (Ambien) 5 mg PO BEDTIME PRN PRN Reason: Insomnia Last Admin: 02/17/17 21:02 Dose: 5 mg Discontinued Medications Acetaminophen (Tylenol) 650 mg PO NOW ONE Stop: 02/17/17 12:32 Last Admin: 02/17/17 12:38 Dose: 650 mg Aminophylline (Aminophylline) 125 mg IV ONETIME PRN PRN Reason: LEXISCAN REVERSAL Stop: 02/18/17 12:00 Last Admin: 02/18/17 10:48 Dose: 125 mg Aspirin (Aspirin) 324 mg PO ONETIME ONE Stop: 02/17/17 11:50 Last Admin: 02/17/17 13:09 Dose: Not Given Hydromorphone HCl (Dilaudid) 0.5 mg IVPUSH ONETIME ONE Stop: 02/17/17 14:23 Last Admin: 02/17/17 14:40 Dose: 0.5 mg Sodium Chloride (Normal Saline) 100 mls @ 3 mls/sec IV ONETIME ONE Stop: 02/18/17 15:54 Last Admin: 02/18/17 16:11 Dose: 3 mls/sec Ketorolac Tromethamine (Toradol) 30 mg IVPUSH ONETIME ONE Stop: 02/17/17 12:55 Last Admin: 02/17/17 13:06 Dose: 30 mg Lorazepam (Ativan) 0.5 mg IVPUSH ONETIME ONE Stop: 02/17/17 13:41 Last Admin: 02/17/17 13:45 Dose: 0.5 mg Nitroglycerin (Nitrostat) 0.4 mg SL Q5M PRN PRN Reason: Chest Pain Last Admin: 02/17/17 12:48 Dose: 0.4 mg Regadenoson (Lexiscan) 0.4 mg IVPUSH ONETIME ONE Stop: 02/18/17 11:01 Last Admin: 02/18/17 10:37 Dose: 0.4 mg Sodium Chloride (Saline Flush) 10 ml FLUSH ONETIME ONE Stop: 02/18/17 16:00 Last Admin: 02/18/17 16:11 Dose: 10 ml *Q Meaningful Use (DIS) - VTE *Q VTE Criteria *Q: - Stroke *Q Stroke Criteria *Q: - AMI *Q AMI Criteria *Q:
--- NOTE | 2017-02-21 01:30 | STRESS ---
DATE OF SERVICE: 02/20/2017 PROCEDURE: Lexiscan Cardiolite study. TECHNIQUE: Ms. Jc originally was scheduled for an exercise Cardiolite study, but she was unable to exercise adequately to complete the test, so was converted to Lexiscan study. She was infused with usual dose of Lexiscan and then received the Cardiolite injection. She complained of symptoms of chest heaviness, headache, dizziness, and nausea. She did have persistent symptoms after the study was completed, so she was given 125 mg of intravenous aminophylline and her symptoms resolved quickly thereafter. Resting EKG shows sinus rhythm, rate of 65, normal axis and intervals. Otherwise, normal appearing EKG. No significant changes were noted on the post hyperventilation or standing ECGs. There were no significant ST-segment changes, T-wave abnormalities seen with Lexiscan infusion or during the post infusion. No significant dysrhythmias were identified during the monitoring. IMPRESSION: Unremarkable portion of Lexiscan Cardiolite study. Interpretation of the Cardiolite portion of the study should be available for review. Rick Rowan MD /[id number]
== END 2017-02-18 18:45 | disposition home or self-care (01) ==
LOC: JP.ED 11:36 → JP.ICU 15:06
PROVIDERS: ADMIT Hospitalist; ATTEND Hospitalist
DX: R07.9 Chest pain, unspecified (principal); M79.7 Fibromyalgia; E78.00 Pure hypercholesterolemia, unspecified; F41.9 Anxiety disorder, unspecified; Z79.899 Other long term (current) drug therapy; Z88.1 Allergy status to other antibiotic agents; Z90.710 Acquired absence of both cervix and uterus; Z98.890 Other specified postprocedural states; Z96.649 Presence of unspecified artificial hip joint
CPT/HCPCS: 36415; 71010; 71275; 78452; 80053; 80061; 81001; 82550; 84443; 84484; 85025; 93005; 93010; 93017; 96372; 96374; 96375; 96376; 99220; 99284; 99285; A9270; A9500; C9113; G0378; J1170; J1650; J1885; J2060; J2785; J7030; J7050; Q9967

== ENCOUNTER 2017-09-11 12:52 | Observation (INO) | payer MEDICARE, BC ==
[2017-09-11] MEDS ORDERED: Aspirin 81 MG Tab.Chew PO ONE (13:08)
--- NOTE | 2017-09-11 13:10 | EDM.PDOC ---
ED HPI GENERAL MEDICAL PROBLEM - General Chief Complaint: Chest Pain Stated Complaint: CHEST PAIN Time Seen by Provider: 09/11/17 13:09 Source of Information: Reports: Patient History Limitations: Reports: No Limitations - History of Present Illness INITIAL COMMENTS - FREE TEXT/NARRATIVE: pt arrived with retro sternal chest This was very severe. It did not radiate to her jaw or to her left arm. Onset: Today, Other ( This started about 11 am. ) Duration: Hour(s):, Other (pt did not get sweaty and she did not vomit. She does have a history of some reflux. This does not feel like that. ) Location: Reports: Chest Associated Symptoms: Reports: Chest Pain, Shortness of Breath Middle Chest Pain Score (Numeric/FACES): 7 - Related Data Allergies Allergy/AdvReac Type Severity Reaction Status Date / Time erythromycin base AdvReac Vomiting Verified 09/11/17 13:08 Home Meds: Home Meds Calcium Carbonate [Calcium] 1 tab PO BID 04/01/15 [History] Cyclobenzaprine [Flexeril] 40 tab PO BEDTIME 04/01/15 [History] Levothyroxine [Synthroid] 1 tab PO DAILY 04/01/15 [History] Simvastatin [Zocor] 20 mg PO BEDTIME 07/13/16 [History] ALPRAZolam [Alprazolam] 1 mg PO BID PRN 02/17/17 [History] Cholecalciferol (Vitamin D3) [Vitamin D3] 1,000 units PO BID 02/17/17 [History] Past Medical History HEENT History: Reports: Impaired Vision Cardiovascular History: Reports: High Cholesterol CR[employer] 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 SPECIALIST History: Reports: Musculoskeletal History: Reports: Fibromyalgia, Other (See Below) Other Musculoskeletal History: hip pain Other Neuro History: memory loss Psychiatric History: Reports: Anxiety Endocrine/Metabolic History: Reports: Hypothyroidism Hematologic History: Reports: Blood Transfusion(s) - Past Surgical History HEENT Surgical History: Reports: Adenoidectomy, Tonsillectomy GI Surgical History: Reports: Colon, Colonoscopy, Other (See Below) Other GI Surgeries/Procedures: colon surg "tummy tuck" Female Surgical History: Reports: Hysterectomy Musculoskeletal Surgical History: Reports: Hip Replacement, Joint Replacement Social & Family History - Tobacco Use Smoking Status *Q: Never Smoker Years of Tobacco use: 35 Packs/Tins Daily: 1 Second Hand Smoke Exposure: No - Caffeine Use Caffeine Use: Reports: None - Alcohol Use Days Per Week of Alcohol Use: 1 Number of Drinks Per Day: 3 Total Drinks Per Week: 3 - Recreational Drug Use Recreational Drug Use: No ED ROS GENERAL - Review of Systems Review Of Systems: See Below Constitutional: Reports: No Symptoms HEENT: Reports: No Symptoms Respiratory: Reports: Other ( Pt does not think the pain gets worse when she takes a deep breath. ) Cardiovascular: Reports: Chest Pain Endocrine: Reports: No Symptoms GI/Abdominal: Reports: No Symptoms : Reports: No Symptoms Musculoskeletal: Reports: No Symptoms Skin: Reports: No Symptoms Neurological: Reports: No Symptoms Psychiatric: Reports: Anxiety ED EXAM, GENERAL - Physical Exam Exam: See Below Free Text/Narrative:: pt arrived with chest pain and mild sob. Exam Limited By: No Limitations General Appearance: Alert, Moderate Distress Ears: Normal TMs Nose: Normal Inspection Throat/Mouth: Normal Inspection Head: Atraumatic Neck: Normal Inspection Respiratory/Chest: No Respiratory Distress Cardiovascular: Regular Rate, Rhythm GI/Abdominal: Soft, Non-Tender (Female) Exam: Deferred Rectal (Female) Exam: Deferred Back Exam: Normal Inspection Extremities: Normal Inspection Neurological: Alert, Oriented, Normal Cognition Course - Vital Signs Last Recorded V/S: Last Vital Signs Temp 36.9 C 09/11/17 13:01 Pulse 60 09/11/17 16:30 Resp 14 09/11/17 16:30 BP 114/72 09/11/17 16:30 Pulse Ox 93 L 09/11/17 16:30 - Orders/Labs/Meds Orders: Active Orders 24 hr Category Date Time Status EKG Documentation Completion [RC] ASDIRECTED Care 09/11/17 13:07 Active EKG Documentation Completion [RC] ASDIRECTED Care 09/11/17 18:42 Ordered Ang Chest [CT] Stat Exams 09/11/17 16:55 Taken Chest 1V Frontal [CR] Stat Exams 09/11/17 13:53 Taken Iopamidol [Isovue-370 (76%)] Med 09/11/17 17:00 Active 100 ml IV . DIRECTED Sodium Chloride 0.9% [Normal Saline] 100 ml Med 09/11/17 17:00 Active IV ASDIRECTED EKG 12 Lead [EK] Routine Ther 09/11/17 13:07 Ordered EKG 12 Lead [EK] Routine Ther 09/11/17 18:41 Ordered Medication Orders Sodium Chloride (Normal Saline) 100 mls @ 3 mls/sec IV ASDIRECTED [facility] Last Admin: 09/11/17 17:16 Dose: 3 mls/sec Iopamidol (Isovue-370 (76%)) 100 ml IV . DIRECTED [facility] Last Admin: 09/11/17 17:16 Dose: 100 ml Labs: Laboratory Tests 09/11/17 09/11/17 09/11/17 Range/Units 13:15 13:15 13:15 WBC 6.6 (4.5-11.0) K/uL RBC 4.64 (3.30-5.50) M/uL Hgb 14.2 (12.0-15.0) g/dL Hct 41.7 (36.0-48.0) % MCV 90 (80-98) fL MCH 31 (27-31) pg MCHC 34 (32-36) % Plt Count 274 (150-400) K/uL Neut % (Auto) 55 (36-66) % Lymph % (Auto) 30 (24-44) % [place] % (Auto) 12 H (2-6) % Eos % (Auto) 2 (2-4) % Baso % (Auto) 0 (0-1) % D-Dimer, Quantitative (0.0-400.0) ng/mL Sodium 142 (140-148) mmol/L Potassium 3.6 (3.6-5.2) mmol/L Chloride 106 (100-108) mmol/L Carbon Dioxide 24 (21-32) mmol/L Anion Gap 11.7 (5.0-14.0) mmol/L BUN 12 (7-18) mg/dL Creatinine 0.7 (0.6-1.0) mg/dL Est Cr Clr Drug Dosing 90.53 mL/min Estimated GFR (MDRD) > 60 (>60) Glucose 106 (74-106) mg/dL Calcium 8.8 (8.5-10.1) mg/dL Total Bilirubin 0.4 (0.2-1.0) mg/dL AST 23 (15-37) U/L ALT 36 (12-78) U/L Alkaline Phosphatase 62 (46-116) U/L Creatine Kinase 87 (26-192) U/L Troponin I < 0.017 (0.000-0.056) ng/mL Total Protein 7.5 (6.4-8.2) g/dL Albumin 3.8 (3.4-5.0) g/dL Globulin 3.7 H (2.3-3.5) g/dL Albumin/Globulin Ratio 1.0 L (1.2-2.2) 09/11/17 09/11/17 Range/Units 13:15 15:51 WBC (4.5-11.0) K/uL RBC (3.30-5.50) M/uL Hgb (12.0-15.0) g/dL Hct (36.0-48.0) % MCV (80-98) fL MCH (27-31) pg MCHC (32-36) % Plt Count (150-400) K/uL Neut % (Auto) (36-66) % Lymph % (Auto) (24-44) % [place] % (Auto) (2-6) % Eos % (Auto) (2-4) % Baso % (Auto) (0-1) % D-Dimer, Quantitative 142 (0.0-400.0) ng/mL Sodium (140-148) mmol/L Potassium (3.6-5.2) mmol/L Chloride (100-108) mmol/L Carbon Dioxide (21-32) mmol/L Anion Gap (5.0-14.0) mmol/L BUN (7-18) mg/dL Creatinine (0.6-1.0) mg/dL Est Cr Clr Drug Dosing mL/min Estimated GFR (MDRD) (>60) Glucose (74-106) mg/dL Calcium (8.5-10.1) mg/dL Total Bilirubin (0.2-1.0) mg/dL AST (15-37) U/L ALT (12-78) U/L Alkaline Phosphatase (46-116) U/L Creatine Kinase (26-192) U/L Troponin I < 0.017 (0.000-0.056) ng/mL Total Protein (6.4-8.2) g/dL Albumin (3.4-5.0) g/dL Globulin (2.3-3.5) g/dL Albumin/Globulin Ratio (1.2-2.2) Meds: Medications Generic Name Dose Route Start Last Admin Trade Name Shazia PRN Reason Stop Dose Admin Sodium Chloride 100 mls @ 3 mls/sec 09/11/17 17:00 09/11/17 17:16 Normal Saline IV 3 mls/sec ASDIRECTED ASHA Administration Iopamidol 100 ml 09/11/17 17:00 09/11/17 17:16 Isovue-370 (76%) IV 100 ml . DIRECTED ASHA Administration Discontinued Medications Generic Name Dose Route Start Last Admin Trade Name Shazia PRN Reason Stop Dose Admin Aspirin 324 mg 09/11/17 13:08 09/11/17 13:23 Aspirin PO 09/11/17 13:09 324 mg ONETIME ONE Administration Al Hydroxide/Mg Hydroxide 15 0 ml 09/11/17 13:49 09/11/17 13:55 ml/ Lidocaine HCl 15 ml PO 09/11/17 13:50 30 ml ONETIME ONE Administration Hydromorphone HCl 0.5 mg 09/11/17 14:03 09/11/17 14:11 Dilaudid IVPUSH 09/11/17 14:04 0.5 mg ONETIME ONE Administration Hydromorphone HCl 0.5 mg 09/11/17 16:36 09/11/17 16:42 Dilaudid IVPUSH 09/11/17 16:37 0.5 mg ONETIME ONE Administration Hydromorphone HCl 0.5 mg 09/11/17 18:39 09/11/17 18:45 Dilaudid IVPUSH 09/11/17 18:40 0.5 mg ONETIME ONE Administration Lorazepam 0.5 mg 09/11/17 13:30 09/11/17 13:35 Ativan PO 09/11/17 13:31 0.5 mg ONETIME ONE Administration Nitroglycerin Confirm 09/11/17 13:25 Nitrostat Administered 09/11/17 13:26 Dose 0.4 mg .ROUTE .STK-MED ONE Nitroglycerin 0.4 mg 09/11/17 13:29 09/11/17 13:50 Nitrostat SL 0.4 mg Q5M PRN Administration Chest Pain - Re-Assessments/Exams Free Text/Narrative Re-Assessment/Exam: 09/11/17 18:45 2 tropons were normal. The pt continues to have chest pain. She had a angio of the chest which the final reading is not back. A repeat ekg was ordered. Departure - Departure Time of Disposition: 18:47 Disposition: Admitted As Inpatient 66 Condition: Fair Clinical Impression: Atypical chest pain Referrals: PCP,None [Primary Care Provider] - Forms: ED Department Discharge Care Plan Goals: admit to Dr nielson. - My Orders Last 24 Hours: My Active Orders 09/11/17 13:07 EKG Documentation Completion [RC] ASDIRECTED EKG 12 Lead [EK] Routine 09/11/17 13:53 Chest 1V Frontal [CR] Stat 09/11/17 16:55 Ang Chest [CT] Stat 09/11/17 17:00 Iopamidol [Isovue-370 (76%)] 100 ml IV . DIRECTED Sodium Chloride 0.9% [Normal Saline] 100 ml IV ASDIRECTED 09/11/17 18:41 EKG 12 Lead [EK] Routine 09/11/17 18:42 EKG Documentation Completion [RC] ASDIRECTED - Assessment/Plan Last 24 Hours: My Active Orders 09/11/17 13:07 EKG Documentation Completion [RC] ASDIRECTED EKG 12 Lead [EK] Routine 09/11/17 13:53 Chest 1V Frontal [CR] Stat 09/11/17 16:55 Ang Chest [CT] Stat 09/11/17 17:00 Iopamidol [Isovue-370 (76%)] 100 ml IV . DIRECTED Sodium Chloride 0.9% [Normal Saline] 100 ml IV ASDIRECTED 09/11/17 18:41 EKG 12 Lead [EK] Routine 09/11/17 18:42 EKG Documentation Completion [RC] ASDIRECTED
[2017-09-11] MEDS ORDERED: Nitroglycerin 0.4 MG Tab.SL ONE (13:25)
[2017-09-11] MEDS: Nitroglycerin 0.4 MG Tab.SL SL PRN ×3 (13:30→13:50)
[2017-09-11] MEDS ORDERED: LORazepam 0.5 MG Tab PO ONE (13:30)
[2017-09-11] MEDS ORDERED: Alum Hydrox/Mag Hydrox/Simeth 15 ML, Lidocaine 2% 15 ML PO ONE ×2 (13:49)
[2017-09-11] MEDS ORDERED: HYDROmorphone 0.5 MG/0.5 ML Syringe IVPUSH ONE ×3 (14:03→18:39)
[2017-09-11] MEDS ORDERED: Sodium Chloride 0.9% 100 ML IV SCH (17:00)
[2017-09-11] MEDS ORDERED: Iopamidol 755 Mg/ML 100 ML Bottle IV SCH (17:00)
--- NOTE | 2017-09-11 19:32 | PCM.HP ---
H&P History of Present Illness - General Date of Service: 09/11/17 Admit Problem/Dx: Admission Diagnosis/Problem Admission Diagnosis/Problem Atypical chest pain Source of Information: Patient, Family, Provider History Limitations: Reports: No Limitations - History of Present Illness Initial Comments - Free Text/Narative: Brooke presents to the emergency room with chest pain that started about 16 hours prior to presentation. She describes this as a pressure-like pain located right in the middle of her chest above the xiphoid process. She was able to get some sleep last night but the pain was still there when she woke up this morning. The pain has ranged from mild to moderately severe with a waxing and waning nature. She didn't take anything at home to help with the pain. No obvious triggers to make the pain worse. No associated symptoms such as shortness of breath or nausea. She has noticed a few palpitations over the past few days but none coinciding with the pain. She's had similar but milder episodes off and on for years. No recent fevers or cough. No complaints of abdominal pain or nausea. She had a similar episode 6 months ago with no obvious cause found. She had an extensive workup in the emergency room including 2 EKGs, multiple blood tests, CT pulmonary angiogram and a chest x-ray. All of these are unremarkable. She was admitted for observation and additional workup. Middle Chest Pain Score (Numeric/FACES): 7 - Related Data Allergies/Adverse Reactions: Allergies Allergy/AdvReac Type Severity Reaction Status Date / Time erythromycin base AdvReac Vomiting Verified 09/11/17 13:08 Home Medications: Home Meds Calcium Carbonate [Calcium] 1 tab PO BID 04/01/15 [History] Cyclobenzaprine [Flexeril] 30 tab PO BEDTIME 04/01/15 [History] Levothyroxine [Synthroid] 1 tab PO DAILY 04/01/15 [History] Simvastatin [Zocor] 20 mg PO BEDTIME 07/13/16 [History] ALPRAZolam [Alprazolam] 2 mg PO BID PRN 02/17/17 [History] Cholecalciferol (Vitamin D3) [Vitamin D3] 1,000 units PO BID 02/17/17 [History] Past Medical History HEENT History: Reports: Impaired Vision Cardiovascular History: Reports: High Cholesterol 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: Musculoskeletal History: Reports: Fibromyalgia, Other (See Below) Other Musculoskeletal History: hip pain Other Neuro History: memory loss Psychiatric History: Reports: Anxiety Endocrine/Metabolic History: Reports: Hypothyroidism Hematologic History: Reports: Blood Transfusion(s) - Past Surgical History HEENT Surgical History: Reports: Adenoidectomy, Tonsillectomy GI Surgical History: Reports: Colon, Colonoscopy, Other (See Below) Other GI Surgeries/Procedures: colon surg "tummy tuck" Female Surgical History: Reports: Hysterectomy Musculoskeletal Surgical History: Reports: Hip Replacement, Joint Replacement Social & Family History - Family History Cardiac: Denies: CAD - Tobacco Use Smoking Status *Q: Never Smoker Years of Tobacco use: 35 Packs/Tins Daily: 1 Second Hand Smoke Exposure: No - Caffeine Use Caffeine Use: Reports: None - Alcohol Use Days Per Week of Alcohol Use: 1 Number of Drinks Per Day: 3 Total Drinks Per Week: 3 - Recreational Drug Use Recreational Drug Use: No H&P Review of Systems - Review of Systems: Review Of Systems: See Below Free Text/Narrative: A complete 12 point review of systems was obtained. Pertinent positives and negatives are noted in the history of present illness. All other systems were reviewed and were negative except as noted. Exam - Exam Exam: See Below - Vital Signs Vital Signs: Last Vital Signs Temp 36.9 C 09/11/17 13:01 Pulse 80 09/11/17 18:54 Resp 14 09/11/17 18:54 BP 137/89 09/11/17 18:54 Pulse Ox 96 09/11/17 18:54 Weight: 77.111 kg - Exam Quality Assessment: No: Supplemental Oxygen General: Alert, Oriented, Cooperative. No: Mild Distress HEENT: Conjunctiva Clear, Mucosa Moist & [place]. No: Scleral Icterus Neck: Supple, Trachea Midline. No: Lymphadenopathy Lungs: Clear to Auscultation, Normal Respiratory Effort Cardiovascular: Regular Rate, Regular Rhythm. No: Systolic Murmur GI/Abdominal Exam: Normal Bowel Sounds, Soft, No Distention, No Mass, Tender ( mild lower abdomen ) Back Exam: Normal Inspection, Full Range of Motion Extremities: No Pedal Edema. No: Increased Warmth Peripheral Pulses: 2+: Dorsalis Pedis (L), Dorsalis Pedis (R) Skin: Warm, Dry Neuro Extensive - Mental Status: Alert, Oriented x3, Nl Response to Commands Neuro Extensive - Motor, Sensory, Reflexes: No: Dysarthria, Abnormal Motor, Tremor Psychiatric: Alert, Normal Affect - Patient Data Lab Results Last 24 hrs: Laboratory Results - last 24 hr 09/11/17 09/11/17 09/11/17 Range/Units 13:15 13:15 13:15 WBC 6.6 (4.5-11.0) K/uL RBC 4.64 (3.30-5.50) M/uL Hgb 14.2 (12.0-15.0) g/dL Hct 41.7 (36.0-48.0) % MCV 90 (80-98) fL MCH 31 (27-31) pg MCHC 34 (32-36) % Plt Count 274 (150-400) K/uL Neut % (Auto) 55 (36-66) % Lymph % (Auto) 30 (24-44) % [place] % (Auto) 12 H (2-6) % Eos % (Auto) 2 (2-4) % Baso % (Auto) 0 (0-1) % D-Dimer, Quantitative (0.0-400.0) ng/mL Sodium 142 (140-148) mmol/L Potassium 3.6 (3.6-5.2) mmol/L Chloride 106 (100-108) mmol/L Carbon Dioxide 24 (21-32) mmol/L Anion Gap 11.7 (5.0-14.0) mmol/L BUN 12 (7-18) mg/dL Creatinine 0.7 (0.6-1.0) mg/dL Est Cr Clr Drug Dosing 90.53 mL/min Estimated GFR (MDRD) > 60 (>60) Glucose 106 (74-106) mg/dL Calcium 8.8 (8.5-10.1) mg/dL Total Bilirubin 0.4 (0.2-1.0) mg/dL AST 23 (15-37) U/L ALT 36 (12-78) U/L Alkaline Phosphatase 62 (46-116) U/L Creatine Kinase 87 (26-192) U/L Troponin I < 0.017 (0.000-0.056) ng/mL Total Protein 7.5 (6.4-8.2) g/dL Albumin 3.8 (3.4-5.0) g/dL Globulin 3.7 H (2.3-3.5) g/dL Albumin/Globulin Ratio 1.0 L (1.2-2.2) 09/11/17 09/11/17 Range/Units 13:15 15:51 WBC (4.5-11.0) K/uL RBC (3.30-5.50) M/uL Hgb (12.0-15.0) g/dL Hct (36.0-48.0) % MCV (80-98) fL MCH (27-31) pg MCHC (32-36) % Plt Count (150-400) K/uL Neut % (Auto) (36-66) % Lymph % (Auto) (24-44) % [place] % (Auto) (2-6) % Eos % (Auto) (2-4) % Baso % (Auto) (0-1) % D-Dimer, Quantitative 142 (0.0-400.0) ng/mL Sodium (140-148) mmol/L Potassium (3.6-5.2) mmol/L Chloride (100-108) mmol/L Carbon Dioxide (21-32) mmol/L Anion Gap (5.0-14.0) mmol/L BUN (7-18) mg/dL Creatinine (0.6-1.0) mg/dL Est Cr Clr Drug Dosing mL/min Estimated GFR (MDRD) (>60) Glucose (74-106) mg/dL Calcium (8.5-10.1) mg/dL Total Bilirubin (0.2-1.0) mg/dL AST (15-37) U/L ALT (12-78) U/L Alkaline Phosphatase (46-116) U/L Creatine Kinase (26-192) U/L Troponin I < 0.017 (0.000-0.056) ng/mL Total Protein (6.4-8.2) g/dL Albumin (3.4-5.0) g/dL Globulin (2.3-3.5) g/dL Albumin/Globulin Ratio (1.2-2.2) Result Diagrams: 09/11/17 13:15 09/11/17 13:15 Imaging Impressions Last 24 hrs: CXR - images personally reviewed - no mass, infiltrate or effusion. heart size normal. CT pulmonary angiogram - no PE or acute findings. EKG INTERPRETATION EKG Date: 09/11/17 (2 ekgs in the ER) Rhythm: NSR Rate (Beats/Min): 68 [place]: Normal P-Wave: Present QRS: Normal ST-T: Normal QT: Normal Comparison: No Change *Q Meaningful Use (ADM) - VTE Risk Assess *Q Each Risk Factor Represents 1 Point: Age 41 - 59 years Total Score 1 Point Risk Factors: 1 Each Risk Factor Represents 2 Points: None Total Score 2 Point Risk Factors: 0 Each Risk Factor Represents 3 Points: None Total Score 3 Point Risk Factors: 0 Each Risk Factor Represents 5 Points: None Total Score 5 Point Risk Factors: 0 Venous Thromboembolism Risk Factor Score *Q: 1 - Problem List (1) Atypical chest pain SNOMED Code(s): 158513088 ICD Code: R07.89 - OTHER CHEST PAIN Status: Acute Current Visit: Yes (2) Fibromyalgia SNOMED Code(s): 617336465 ICD Code: M79.7 - FIBROMYALGIA Status: Chronic Current Visit: No Problem List Initiated/Reviewed/Updated: Yes Orders Last 24hrs: Active Orders 24 hr Category Date Time Status Patient Status Manage Transfer [TRANSFER] Routine ADT 09/11/17 19:22 Ordered EKG Documentation Completion [RC] ASDIRECTED Care 09/11/17 13:07 Active EKG Documentation Completion [RC] ASDIRECTED Care 09/11/17 18:42 Active Ang Chest [CT] Stat Exams 09/11/17 16:55 Taken Chest 1V Frontal [CR] Stat Exams 09/11/17 13:53 Taken Iopamidol [Isovue-370 (76%)] Med 09/11/17 17:00 Active 100 ml IV . DIRECTED Sodium Chloride 0.9% [Normal Saline] 100 ml Med 09/11/17 17:00 Active IV ASDIRECTED Resuscitation Status Routine Resus Stat 09/11/17 19:24 Ordered EKG 12 Lead [EK] Routine Ther 09/11/17 13:07 Ordered EKG 12 Lead [EK] Routine Ther 09/11/17 18:41 Ordered Medication Orders Sodium Chloride (Normal Saline) 100 mls @ 3 mls/sec IV ASDIRECTED ASHA Last Admin: 09/11/17 17:16 Dose: 3 mls/sec Iopamidol (Isovue-370 (76%)) 100 ml IV . DIRECTED ASHA Last Admin: 09/11/17 17:16 Dose: 100 ml Assessment/Plan Comment:: ASSESSMENT AND PLAN - Atypical chest pain - present for nearly 24 hours and the only relief she has had has been with Dilaudid. 2 EKGs were unremarkable. [address] pulmonary angiogram was normal. Doesn't quite sound like a GI source but unusual gallbladder presentation or possibly peptic ulcer disease could be considered. -Pain control -Cardiac monitoring -Right upper quadrant ultrasound in the morning -EGD in the morning Fibromyalgia - Long-standing diagnosis. Patient reports control has been fairly decent recently. Previous episodes of chest pain like this have been attributed to her fibromyalgia per her report. -Continue home medications Maintenance issues - - DVT prophylaxis - mechanical - GI prophylaxis - IV PPI 1 tonight - Nutrition - nothing by mouth after midnight - Awan catheter - not indicated CODE STATUS - full code Admission justification - patient will be referred observation for additional monitoring and workup Disposition - anticipate discharge to home tomorrow Primary care physician - Dr. Agarwal in [place], [place] Pasha Mckeon M.D.
[2017-09-11] MEDS ORDERED: Acetaminophen 325 MG Tab PO PRN (20:14)
[2017-09-11] MEDS ORDERED: oxyCODONE 5 MG Tab PO PRN (20:14)
[2017-09-11] MEDS ORDERED: Ondansetron 4 MG Tab.DIS PO PRN (20:14)
[2017-09-11] MEDS ORDERED: Pantoprazole 40 MG Vial IVPUSH ONE (20:14)
[2017-09-11] MEDS ORDERED: ALPRAZolam 0.5 MG Tab PO PRN (20:23)
[2017-09-11] MEDS: HYDROmorphone 0.5 MG/0.5 ML Syringe IVPUSH PRN (20:50)
[2017-09-11] MEDS ORDERED: Simvastatin 20 MG Tab PO SCH (21:00)
[2017-09-11] MEDS ORDERED: Levothyroxine 100 MCG Tab PO SCH (21:00)
[2017-09-11] MEDS ORDERED: Levothyroxine 50 MCG Tab ONE (21:09)
[2017-09-11] MEDS ORDERED: Cyclobenzaprine 10 MG Tab PO SCH (21:10)
[2017-09-12] MEDS ORDERED: fentaNYL 100 MCG/2 ML SDV ONE (09:04)
[2017-09-12] MEDS ORDERED: Propofol 200 MG/20 ML SDV ONE (09:04)
[2017-09-12] MEDS ORDERED: Ondansetron 4 MG/2 ML SDV ONE (09:05)
[2017-09-12] MEDS ORDERED: Midazolam 1 MG/ML 2 ML SDV ONE (09:05)
[2017-09-12] MEDS: HYDROmorphone 0.5 MG/0.5 ML Syringe IVPUSH PRN (10:51)
--- NOTE | 2017-09-12 12:22 | PCM.DCSUM1 ---
Discharge Summary - Hospital Course Brief History: 56-year-old female with history of fibromyalgia who presented with acute chest pain. She was admitted for observation and additional workup after an unremarkable workup in the emergency room. - Discharge Data Discharge Date: 09/12/17 Discharge Disposition: Home, Self-Care 01 Condition: Fair - Discharge Diagnosis/Problem(s) (1) Atypical chest pain SNOMED Code(s): 176191982 ICD Code: R07.89 - OTHER CHEST PAIN Status: Acute (2) Fibromyalgia SNOMED Code(s): 228264024 ICD Code: M79.7 - FIBROMYALGIA Status: Chronic (3) Esophageal ulceration SNOMED Code(s): 43257848 ICD Code: K22.10 - ULCER OF ESOPHAGUS WITHOUT BLEEDING Status: Acute Qualifiers: Esophageal ulcer bleeding: without bleeding Qualified Code(s): K22.10 - Ulcer of esophagus without bleeding - Patient Summary/Data Consults: Consultations 09/11/17 20:14 Consult to Physician [CONS] Routine Consulting Provider: Lonnie Gregg Courtesy Call Completed to Consulting Physician: Yes Reason for Consult: epigastric pain Person Notified: BDB Date Notified: 09/11/17 Special Instructions: EGD in the morning Hospital Course: Brooke presented to the emergency room with approximately 16 hours of persistent substernal chest pain that was atypical in nature. She had an extensive workup in the emergency room including 2 troponin levels, [address] pulmonary angiogram. She did not receive relief from nitroglycerin or a GI cocktail but did get some relief from Dilaudid. Given the recurrence of the pain she was admitted for observation. Overnight there was no recurrence of the pain. There were no abnormalities noted on cardiac monitoring her vital signs were stable. The morning after admission she had an ultrasound of the right upper quadrant which revealed mild fatty infiltration of the liver but no gallbladder abnormalities. She was taken to the operating room and had an upper endoscopy performed which showed a very small ulcerated area in the esophagus. The lesion in the midportion of the esophagus was biopsied during the procedure. This was small and not thought to be the source of pain. She does not have odynophagia. She has been pain-free. I believe she is safe for outpatient management at this time. No obvious cause for her pain was identified. She has had a recent stress test which was unremarkable. She tolerated her diet well. Since she has been pain-free and acute causes have been ruled out she will be discharged home. She will try to establish care locally with a physician since her current primary care is located near the [facility]. I encouraged her to follow-up in approximately one week so she can get her biopsy results. - Patient Instructions Diet: Regular Diet as Tolerated Activity: As Tolerated Driving: May Drive Today Showering/Bathing: May Shower Notify Provider of: Fever, Increased Pain, Nausea and/or Vomiting Other/Special Instructions: 1. You were in the hospital for observation and further evaluation of chest pain. There was no evidence for heart attack or blood clot in your lungs. The ultrasound of your gallbladder was normal. We did see a very small area of ulceration in the esophagus and biopsies have been obtained but will not be available until the end of next week. I would recommend a soft and bland diet and follow-up with primary care in the next week or so. No definite etiology was determined but we did not find any acute issues. 2. Establish care locally, good considerations would include Dr. Fisher or Dr Aguayo. 3. Seek medical attention if you develop severe chest pain, acute onset of shortness of breath or if you have a fever greater than 101 . - Discharge Plan Prescriptions/Med Rec: HYDROmorphone [Dilaudid] 2 mg PO Q6H PRN #15 tab PRN Reason: Pain (Severe 7-10) Home Medications: Home Meds Calcium Carbonate [Calcium] 1 tab PO BID 04/01/15 [History] Cyclobenzaprine [Flexeril] 30 tab PO BEDTIME 04/01/15 [History] Levothyroxine [Synthroid] 1 tab PO DAILY 04/01/15 [History] Simvastatin [Zocor] 20 mg PO BEDTIME 07/13/16 [History] ALPRAZolam [Alprazolam] 2 mg PO BID PRN 02/17/17 [History] Cholecalciferol (Vitamin D3) [Vitamin D3] 1,000 units PO BID 02/17/17 [History] HYDROmorphone [Dilaudid] 2 mg PO Q6H PRN #15 tab 09/12/17 [Rx] Patient Handouts: Nonspecific Chest Pain Referrals: Lilly Fisher MD [Physician] - (establish care - f/u in 1 week for biopsy results) - Discharge Summary/Plan Comment DC Time >30 min.: Yes (35 - coordinating follow-up care) - Patient Data Vitals - Most Recent: Last Vital Signs Temp 36.2 C 09/12/17 10:59 Pulse 73 09/12/17 11:27 Resp 16 09/12/17 11:27 BP 135/75 09/12/17 11:27 Pulse Ox 95 09/12/17 11:27 Weight - Most Recent: 77.111 kg I&O - Last 24 hours: Intake & Output 09/11/17 09/12/17 09/12/17 22:59 06:59 14:59 Intake Total 360 Balance 360 Lab Results - Last 24 hrs: Laboratory Results - last 24 hr 09/11/17 09/11/17 09/11/17 Range/Units 13:15 13:15 13:15 WBC 6.6 (4.5-11.0) K/uL RBC 4.64 (3.30-5.50) M/uL Hgb 14.2 (12.0-15.0) g/dL Hct 41.7 (36.0-48.0) % MCV 90 (80-98) fL MCH 31 (27-31) pg MCHC 34 (32-36) % Plt Count 274 (150-400) K/uL Neut % (Auto) 55 (36-66) % Lymph % (Auto) 30 (24-44) % [place] % (Auto) 12 H (2-6) % Eos % (Auto) 2 (2-4) % Baso % (Auto) 0 (0-1) % ESR (0-25) mm/hr D-Dimer, Quantitative (0.0-400.0) ng/mL Sodium 142 (140-148) mmol/L Potassium 3.6 (3.6-5.2) mmol/L Chloride 106 (100-108) mmol/L Carbon Dioxide 24 (21-32) mmol/L Anion Gap 11.7 (5.0-14.0) mmol/L BUN 12 (7-18) mg/dL Creatinine 0.7 (0.6-1.0) mg/dL Est Cr Clr Drug Dosing 90.53 mL/min Estimated GFR (MDRD) > 60 (>60) Glucose 106 (74-106) mg/dL Calcium 8.8 (8.5-10.1) mg/dL Total Bilirubin 0.4 (0.2-1.0) mg/dL AST 23 (15-37) U/L ALT 36 (12-78) U/L Alkaline Phosphatase 62 (46-116) U/L Creatine Kinase 87 (26-192) U/L Troponin I < 0.017 (0.000-0.056) ng/mL C-Reactive Protein (0.0-0.3) mg/dL Total Protein 7.5 (6.4-8.2) g/dL Albumin 3.8 (3.4-5.0) g/dL Globulin 3.7 H (2.3-3.5) g/dL Albumin/Globulin Ratio 1.0 L (1.2-2.2) 09/11/17 09/11/17 09/12/17 Range/Units 13:15 15:51 05:16 WBC (4.5-11.0) K/uL RBC (3.30-5.50) M/uL Hgb (12.0-15.0) g/dL Hct (36.0-48.0) % MCV (80-98) fL MCH (27-31) pg MCHC (32-36) % Plt Count (150-400) K/uL Neut % (Auto) (36-66) % Lymph % (Auto) (24-44) % [place] % (Auto) (2-6) % Eos % (Auto) (2-4) % Baso % (Auto) (0-1) % ESR 26 H (0-25) mm/hr D-Dimer, Quantitative 142 (0.0-400.0) ng/mL Sodium (140-148) mmol/L Potassium (3.6-5.2) mmol/L Chloride (100-108) mmol/L Carbon Dioxide (21-32) mmol/L Anion Gap (5.0-14.0) mmol/L BUN (7-18) mg/dL Creatinine (0.6-1.0) mg/dL Est Cr Clr Drug Dosing mL/min Estimated GFR (MDRD) (>60) Glucose (74-106) mg/dL Calcium (8.5-10.1) mg/dL Total Bilirubin (0.2-1.0) mg/dL AST (15-37) U/L ALT (12-78) U/L Alkaline Phosphatase (46-116) U/L Creatine Kinase (26-192) U/L Troponin I < 0.017 (0.000-0.056) ng/mL C-Reactive Protein (0.0-0.3) mg/dL Total Protein (6.4-8.2) g/dL Albumin (3.4-5.0) g/dL Globulin (2.3-3.5) g/dL Albumin/Globulin Ratio (1.2-2.2) 09/12/17 Range/Units 05:16 WBC (4.5-11.0) K/uL RBC (3.30-5.50) M/uL Hgb (12.0-15.0) g/dL Hct (36.0-48.0) % MCV (80-98) fL MCH (27-31) pg MCHC (32-36) % Plt Count (150-400) K/uL Neut % (Auto) (36-66) % Lymph % (Auto) (24-44) % [place] % (Auto) (2-6) % Eos % (Auto) (2-4) % Baso % (Auto) (0-1) % ESR (0-25) mm/hr D-Dimer, Quantitative (0.0-400.0) ng/mL Sodium 142 (140-148) mmol/L Potassium 3.9 (3.6-5.2) mmol/L Chloride 106 (100-108) mmol/L Carbon Dioxide 28 (21-32) mmol/L Anion Gap 8.1 (5.0-14.0) mmol/L BUN 11 (7-18) mg/dL Creatinine 0.7 (0.6-1.0) mg/dL Est Cr Clr Drug Dosing 90.88 mL/min Estimated GFR (MDRD) > 60 (>60) Glucose 94 (74-106) mg/dL Calcium 8.9 (8.5-10.1) mg/dL Total Bilirubin (0.2-1.0) mg/dL AST (15-37) U/L ALT (12-78) U/L Alkaline Phosphatase (46-116) U/L Creatine Kinase (26-192) U/L Troponin I (0.000-0.056) ng/mL C-Reactive Protein 0.12 (0.0-0.3) mg/dL Total Protein (6.4-8.2) g/dL Albumin (3.4-5.0) g/dL Globulin (2.3-3.5) g/dL Albumin/Globulin Ratio (1.2-2.2) Med Orders - Current: Current Medications Acetaminophen (Tylenol) 650 mg PO Q4H PRN PRN Reason: Pain (Mild 1-3)/fever Alprazolam (Xanax) 2 mg PO BID PRN PRN Reason: Other Last Admin: 09/11/17 20:46 Dose: 2 mg Cyclobenzaprine HCl (Flexeril) 30 mg PO BEDTIME [facility] Last Admin: 09/11/17 21:18 Dose: 30 mg Hydromorphone HCl (Dilaudid) 0.5 mg IVPUSH Q2H PRN PRN Reason: Pain (severe 7-10) Last Admin: 09/12/17 10:51 Dose: 0.5 mg Levothyroxine Sodium (Synthroid) 100 mcg PO BEDTIME [facility] Last Admin: 09/11/17 21:18 Dose: 100 mcg Ondansetron HCl (Zofran Odt) 4 mg PO Q6H PRN PRN Reason: Nausea able to take PO Last Admin: 09/11/17 21:24 Dose: 4 mg Oxycodone HCl (Oxycodone) 2.5 - 5 mg PO Q4H PRN PRN Reason: Pain Simvastatin (Zocor) 20 mg PO BEDTIME [facility] Last Admin: 09/11/17 21:18 Dose: 20 mg Discontinued Medications Aspirin (Aspirin) 324 mg PO ONETIME ONE Stop: 09/11/17 13:09 Last Admin: 09/11/17 13:23 Dose: 324 mg Al Hydroxide/Mg Hydroxide 15 (ml/ Lidocaine HCl 15 ml) 0 ml PO ONETIME ONE Stop: 09/11/17 13:50 Last Admin: 09/11/17 13:55 Dose: 30 ml Fentanyl (Sublimaze) Confirm Administered Dose 100 mcg .ROUTE .STK-MED ONE Stop: 09/12/17 09:05 Hydromorphone HCl (Dilaudid) 0.5 mg IVPUSH ONETIME ONE Stop: 09/11/17 14:04 Last Admin: 09/11/17 14:11 Dose: 0.5 mg Hydromorphone HCl (Dilaudid) 0.5 mg IVPUSH ONETIME ONE Stop: 09/11/17 16:37 Last Admin: 09/11/17 16:42 Dose: 0.5 mg Hydromorphone HCl (Dilaudid) 0.5 mg IVPUSH ONETIME ONE Stop: 09/11/17 18:40 Last Admin: 09/11/17 18:45 Dose: 0.5 mg Sodium Chloride (Normal Saline) 100 mls @ 3 mls/sec IV ASDIRECTED [facility] Last Admin: 09/11/17 17:16 Dose: 3 mls/sec Iopamidol (Isovue-370 (76%)) 100 ml IV . DIRECTED [facility] Last Admin: 09/11/17 17:16 Dose: 100 ml Levothyroxine Sodium (Synthroid) Confirm Administered Dose 100 mcg .ROUTE .STK- MED ONE Stop: 09/11/17 21:10 Last Admin: 09/11/17 21:18 Dose: Not Given Lorazepam (Ativan) 0.5 mg PO ONETIME ONE Stop: 09/11/17 13:31 Last Admin: 09/11/17 13:35 Dose: 0.5 mg Midazolam HCl (Versed 1 Mg/Ml) Confirm Administered Dose 2 mg .ROUTE .STK-MED ONE Stop: 09/12/17 09:06 Nitroglycerin (Nitrostat) Confirm Administered Dose 0.4 mg .ROUTE .STK-MED ONE Stop: 09/11/17 13:26 Last Admin: 09/11/17 21:54 Dose: Not Given Nitroglycerin (Nitrostat) 0.4 mg SL Q5M PRN PRN Reason: Chest Pain Last Admin: 09/11/17 13:50 Dose: 0.4 mg Ondansetron HCl (Zofran) Confirm Administered Dose 4 mg .ROUTE .STK-MED ONE Stop: 09/12/17 09:06 Pantoprazole Sodium (Protonix Iv) 40 mg IVPUSH ONETIME ONE Stop: 09/11/17 20:15 Last Admin: 09/11/17 20:45 Dose: 40 mg Propofol (Diprivan 20 Ml) Confirm Administered Dose 200 mg .ROUTE .STK-MED ONE Stop: 09/12/17 09:05 - Exam Quality Assessment: Denies: Supplemental Oxygen General: Reports: Alert, Oriented, Cooperative, No Acute Distress Neck: Reports: Supple Lungs: Reports: Normal Respiratory Effort Cardiovascular: Reports: Regular Rate, Regular Rhythm Extremities: No Pedal Edema Psy/Mental Status: Reports: Alert, Normal Affect
[2017-09-12 12:30] VITALS: BP 121/77
--- NOTE | 2017-09-14 08:47 | CR ---
Chest 1V Frontal HISTORY: Chest pain COMPARISON: CT chest 02/18/2017 and 09/11/2017. FINDINGS: Calcified granuloma left midlung zone. No focal infiltrates. Cardiac size and pulmonary ves sels normal. No acute congestive changes.
--- NOTE | 2017-09-14 09:13 | US ---
Abdomen Ltd HISTORY: Pain COMPARISON: CT scan chest 09/11/2017. FINDINGS: Diffuse fatty infiltration of the liver. Gallbladder demonstrates no gallstones no gallblad swtai wall thickening. Common bile duct measures 3 to 4 mm. The visualized pancreas appears normal righ t kidney demonstrates a cyst at the superior pole measuring 1.5 cm. Inferior vena cava appears normal no ascites. Impression: Diffuse fatty infiltration of liver. Small cyst right kidney.
--- NOTE | 2017-09-14 09:20 | OR ---
DATE OF PROCEDURE: 09/12/2017 PREOPERATIVE DIAGNOSIS: Retrosternal chest pain. POSTOPERATIVE DIAGNOSES: 1. Small mid esophageal lesion. 2. Retrosternal chest pain. PROCEDURE: Esophagogastroduodenoscopy with biopsy of small mid esophageal lesion. SURGEON: Lonnie Gregg MD ANESTHESIA: IV anesthesia with monitored anesthesia care. INDICATION: This 56-year-old white female was admitted yesterday with severe retrosternal chest pain. This did not radiate anywhere. She has had a cardiac workup, which is negative. A request is made for an upper endoscopy. I counseled her for this, including risks and alternatives, and she gave her informed consent to proceed. DESCRIPTION OF PROCEDURE: The patient was placed in the left lateral decubitus position. IV anesthesia was administered by the Anesthesia Service. Time-out was held. The flexible video Olympus upper endoscope was passed through her mouth, down her esophagus, and into her stomach. The scope was easily passed through the pylorus into the duodenum , reaching its third portion. The scope was then slowly withdrawn, examining the mucosa throughout. The duodenal mucosa appeared unremarkable. The scope was brought back up through the pylorus into the antrum. This appeared unremarkable. The scope was retroflexed. The proximal stomach appeared unremarkable. The scope was straightened and brought up to the GE junction. This appeared unremarkable. The scope was then slowly withdrawn up through the esophagus; in the mid portion of it, we encountered an erythematous lesion, which we basically removed with the biopsy forceps. The specimen was sent to pathology. The scope was then withdrawn further with no other lesions noted. The patient tolerated the procedure well. Lonnie Gregg MD /[id number] MTDD
== END 2017-09-12 13:12 | disposition home or self-care (01) ==
LOC: JP.ED 12:52 → JP.ICU 19:24
PROVIDERS: ADMIT Internal Medicine; ATTEND Internal Medicine
DX: K20.9 Esophagitis, unspecified (principal); F41.9 Anxiety disorder, unspecified; E78.00 Pure hypercholesterolemia, unspecified; E03.9 Hypothyroidism, unspecified; Z88.1 Allergy status to other antibiotic agents; Z79.899 Other long term (current) drug therapy
CPT/HCPCS: 36415; 43239; 71045; 71275; 76705; 80048; 80053; 82550; 84484; 85025; 85379; 85651; 86140; 93005; 96374; 96375; 96376; 99285; A9270; C9113; G0378; J1170; J2250; J2405; J2704; J3010; J7030; Q9967; 88305

== ENCOUNTER 2017-09-28 14:16 | Emergency (ER) | payer MEDICARE, BC ==
[2017-09-28 14:29] VITALS: BP 127/94
--- NOTE | 2017-09-28 15:03 | EDM.PDOC ---
ED HPI GENERAL MEDICAL PROBLEM - General Chief Complaint: Cardiovascular Problem Stated Complaint: CHEST PAIN, SOB, DIZZINESS Time Seen by Provider: 09/28/17 14:35 Source of Information: Reports: Patient, Family History Limitations: Reports: No Limitations - History of Present Illness INITIAL COMMENTS - FREE TEXT/NARRATIVE: 56-year-old female who is in again with chest pain and epigastric discomfort. She feels she's had some pain every day since her discharge 2 weeks ago but today was somewhat worse so her wanted her to be seen. This would be her third visit to the hospital in the last 7 months, she was admitted to previous times. Interestingly she had a 2 day hospitalization in January of last year and had a stress test, she remembers none of that. She has a long extensive history of numerous medical problems involving pain syndromes including fibromyalgia. On her last hospitalization and EGD was done which showed a very tiny ulceration, the biopsy was benign. Quality: Reports: Burning Severity: Moderate Chest Pain Score (Numeric/FACES): 3 - Related Data Allergies Allergy/AdvReac Type Severity Reaction Status Date / Time erythromycin base AdvReac Vomiting Verified 09/11/17 20:18 Home Meds: Home Meds Calcium Carbonate [Calcium] 1 tab PO BID 04/01/15 [History] Cyclobenzaprine [Flexeril] 30 tab PO BEDTIME 04/01/15 [History] Levothyroxine [Synthroid] 1 tab PO DAILY 04/01/15 [History] Simvastatin [Zocor] 20 mg PO BEDTIME 07/13/16 [History] ALPRAZolam [Alprazolam] 2 mg PO BID PRN 02/17/17 [History] Cholecalciferol (Vitamin D3) [Vitamin D3] 1,000 units PO BID 02/17/17 [History] HYDROmorphone [Dilaudid] 2 mg PO Q6H PRN #15 tab 09/12/17 [Rx] Past Medical History HEENT History: Reports: Impaired Vision Cardiovascular History: Reports: High Cholesterol 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: Musculoskeletal History: Reports: Fibromyalgia, Other (See Below) Other Musculoskeletal History: hip pain Other Neuro History: memory loss Psychiatric History: Reports: Anxiety Endocrine/Metabolic History: Reports: Hypothyroidism Hematologic History: Reports: Blood Transfusion(s) - Infectious Disease History Infectious Disease History: Reports: Chicken Pox - Past Surgical History HEENT Surgical History: Reports: Adenoidectomy, Tonsillectomy GI Surgical History: Reports: Colon, Colonoscopy, Small Bowel, Other (See Below) Other GI Surgeries/Procedures: colon surg "tummy tuck" Female Surgical History: Reports: Hysterectomy Neurological Surgical History: Reports: Lumbar Spine Musculoskeletal Surgical History: Reports: Hip Replacement, Joint Replacement Social & Family History - Family History Family Medical History: Noncontributory - Tobacco Use Smoking Status *Q: Former Smoker Years of Tobacco use: 35 Packs/Tins Daily: 1 Used Tobacco, but Quit: Yes Month/Year Tobacco Last Used: many years ago Second Hand Smoke Exposure: No - Caffeine Use Caffeine Use: Reports: None - Alcohol Use Days Per Week of Alcohol Use: 1 Number of Drinks Per Day: 3 Total Drinks Per Week: 3 - Recreational Drug Use Recreational Drug Use: No Recreational Drug Type: Reports: Marijuana/Hashish Recreational Drug Use Frequency: Daily ED ROS GENERAL - Review of Systems Review Of Systems: See Below Constitutional: Reports: Malaise HEENT: Reports: No Symptoms Respiratory: Reports: Shortness of Breath Cardiovascular: Reports: Chest Pain. Denies: Palpitations GI/Abdominal: Reports: Abdominal Pain (Epigastric pain recurring) Musculoskeletal: Reports: Other (diffuse fibromyalgia) Skin: Reports: No Symptoms ED EXAM, GENERAL - Physical Exam Exam: See Below Exam Limited By: No Limitations General Appearance: Alert, No Apparent Distress Eye Exam: Bilateral Eye: Normal Inspection Respiratory/Chest: No Respiratory Distress, Lungs Clear Cardiovascular: Regular Rate, Rhythm. No: Extra Beats GI/Abdominal: Soft, Non-Tender Extremities: No Pedal Edema Neurological: Alert, Oriented Psychiatric: Normal Affect, Normal Mood Skin Exam: Warm, Dry EKG INTERPRETATION Rhythm: NSR Course - Vital Signs Last Recorded V/S: Last Vital Signs Temp 96.6 F 09/28/17 14:38 Pulse 95 09/28/17 14:38 Resp 19 09/28/17 14:38 BP 127/94 H 09/28/17 14:38 Pulse Ox 93 L 09/28/17 14:38 - Re-Assessments/Exams Free Text/Narrative Re-Assessment/Exam: 09/28/17 15:28 EKG was repeated and is normal sinus rhythm. Her other hospitalizations and workups have been reviewed extensively, I'm not sure what more to offer the patient. She has pain medication at home but hasn't taken any today, I encouraged her to use the pain medication if needed and also recommended she start on 20 mg of omeprazole daily. She'll try this for at least 2-3 weeks and recheck if not improving satisfactorily. Departure - Departure Time of Disposition: 15:17 Disposition: Home, Self-Care 01 Condition: Good Clinical Impression: Chest pain Instructions: Nonspecific Chest Pain, [id number] Referrals: PCP,None [Primary Care Provider] - Forms: ED Department Discharge Care Plan Goals: Continue your current medications but try 20 mg of omeprazole daily for at least 2-3 weeks. Establish another primary provider for consultations to gastroenterology or cardiology if needed.
== END 2017-09-28 15:15 | disposition home or self-care (01) ==
LOC: JP.ED 14:16
DX: R07.9 Chest pain, unspecified (principal); Z88.1 Allergy status to other antibiotic agents; E78.00 Pure hypercholesterolemia, unspecified; E03.9 Hypothyroidism, unspecified; F41.9 Anxiety disorder, unspecified; Z87.891 Personal history of nicotine dependence; Z79.899 Other long term (current) drug therapy
CPT/HCPCS: 93010; 99285-25